=== PATIENT | female | born 1985 | race Caucasian/White ===

== ENCOUNTER 2018-02-01 00:01 | Inpatient (IN) | payer OTHER ==
[2018-02-01] MEDS ORDERED: Ondansetron 4 MG/2 ML SDV IVPUSH PRN (02:38)
[2018-02-01] MEDS ORDERED: Nalbuphine 20 MG/1 ML Amp IVPUSH PRN (02:38)
[2018-02-01] MEDS ORDERED: Sodium Chloride 0.9% 10 ML Syringe FLUSH PRN (02:38)
[2018-02-01] MEDS ORDERED: Ampicillin 2 GM in Sodium Chloride 0.9% 100 ML IV ONE (02:38)
--- NOTE | 2018-02-01 02:41 | PCM.LDHP ---
L&D History of Present Illness - General Date of Service: 02/01/18 Admit Problem/Dx: Patient Status Order with Admit Dx/Problem 02/01/18 02:38 Patient Status [ADT] Routine Admission Diagnosis/Problem Admission Diagnosis/Problem Normal Source of Information: Patient History Limitations: Reports: No Limitations - History of Present Illness Introduction:: Patient is a 32 y/o at 38 5/7 wks who presented with concerns of contractions and then had ROM while in triage. Otherwise doing well. No concerns. 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: Reports: Endometriosis : 2 Para: 1 LMP (Approximate): - Past Surgical History GI Surgical History: Reports: Colonoscopy, EGD Female Surgical History: Reports: Other (See Below) (Diagnostic laparoscopy) Social & Family History - Family History Family Medical History: Noncontributory - Tobacco Use Smoking Status *Q: Never Smoker Second Hand Smoke Exposure: No - Alcohol Use Alcohol Use History: No - Recreational Drug Use Recreational Drug Use: No H&P Review of Systems - Review of Systems: Review Of Systems: See Below General: Reports: No Symptoms Pulmonary: Reports: No Symptoms Cardiovascular: Reports: No Symptoms Gastrointestinal: Reports: No Symptoms Genitourinary: Reports: No Symptoms Musculoskeletal: Reports: No Symptoms Psychiatric: Reports: No Symptoms Neurological: Reports: No Symptoms L&D Exam - Exam Exam: See Below - OB Specific Contraction Intensity: Mild to Moderate Movement: Active Heart Tones: Present Heart Tones per Min: 145 Heart Rate (FHR) Variability: Moderate (6-25 bmp) Presentation: Vertex - Franklin Score Franklin Score Cervix Position: Posterior Franklin Score Consistency: Medium Franklin Score Effacement: 51-70% Franklin Score Dilation: 1-2 cm Franklin Score Infant's Station: -2 Franklin Score Total: 5 - Exam General: Alert, Oriented, Cooperative Lungs: Clear to Auscultation, Normal Respiratory Effort Cardiovascular: Regular Rate, Regular Rhythm GI/Abdominal Exam: Soft, Non-Tender Genitourinary: Normal external exam Extremities: Normal Inspection Skin: Warm, Dry, Intact - Patient Data Result Diagrams: 02/01/18 04:20 - Problem List (1) 38 weeks gestation of SNOMED Code(s): 16618615 ICD Code: Z3A.38 - 38 WEEKS GESTATION OF Status: Acute Current Visit: Yes (2) SROM (spontaneous rupture of membranes) SNOMED Code(s): 913448696 ICD Code: [id number] - Status: Acute Current Visit: Yes Problem List Initiated/Reviewed/Updated: Yes Orders Last 24hrs: Active Orders 24 hr Category Date Time Status Patient Status [ADT] Routine ADT 02/01/18 02:38 Ordered Activity as Tolerated [RC] PFP Care 02/01/18 02:38 Ordered Communication Order [RC] ASDIRECTED Care 02/01/18 02:38 Ordered Heart Tones [RC] ASDIRECTED Care 02/01/18 02:38 Ordered Notify Provider [RC] PFP Care 02/01/18 02:38 Ordered Notify Provider [RC] PRN Care 02/01/18 02:38 Ordered Peripheral IV Care [RC] . DIRECTED Care 02/01/18 02:38 Ordered Vital Signs [RC] PER UNIT ROUTINE Care 02/01/18 02:38 Ordered Regular Diet [DIET] Diet 02/01/18 Dinner Ordered CBC W/O DIFF,HEMOGRAM [HEME] Routine Lab 02/01/18 02:38 Ordered TYPE AND SCREEN [BBK] Routine Lab 02/01/18 02:38 Ordered Ampicillin 1 gm Med 02/01/18 02:45 Ordered Sodium Chloride 0.9% [Normal Saline] 100 ml IV Q4H Ampicillin 2 gm Med 02/01/18 02:38 Ordered Sodium Chloride 0.9% [Normal Saline] 100 ml IV ONETIME Lactated Ringers [Ringers, Lactated] 1,000 ml Med 02/01/18 02:45 Ordered IV ASDIRECTED Nalbuphine [Nubain] Med 02/01/18 02:38 Ordered 10 mg IVPUSH Q2H PRN Ondansetron [Zofran] Med 02/01/18 02:38 Ordered 4 mg IVPUSH Q4H PRN Oxytocin/Lactated Ringers [Pitocin in LR 10 Units/1,000 Med 02/01/18 02:45 Ordered ML] 10 unit in 1,000 ml IV .CONTINUOUS Sodium Chloride 0.9% [Saline Flush] Med 02/01/18 02:38 Ordered 10 ml FLUSH ASDIRECTED PRN Electronic Heart Tones Ext w TOCO [WOMSER] Ot 02/01/18 02:38 Ordered Routine Electronic Heart Tones Internal [WOMSER] Per Unit Ot 02/01/18 02:38 Ordered Routine Peripheral IV Insertion Adult [OM.PC] Routine Ot 02/01/18 02:38 Ordered Resuscitation Status Routine Resus Stat 02/01/18 02:38 Ordered Assessment/Plan Comment:: 32 y/o at 38 5/7 wks presents with SROM * CBC adn T&S * GBS positive, will start ampicillin * Will allow patient to labor on her own and will consider augmentation if needed * Pain management per patient preference * Anticipate
[2018-02-01] MEDS ORDERED: Oxytocin/Lactated Ringers 10 UNIT/1,000 ML BAG IV SCH (02:45)
[2018-02-01] MEDS: Lactated Ringers 1,000 ML IV SCH ×5 (03:05→22:47)
[2018-02-01] MEDS: Ampicillin 1 GM in Sodium Chloride 0.9% 100 ML IV SCH ×4 (07:19→20:05)
[2018-02-01] MEDS ORDERED: ePHEDrine 50 MG/ML SDV IVPUSH PRN ×3 (07:36→20:29)
[2018-02-01] MEDS ORDERED: fentaNYL 100 MCG/2 ML SDV EPIDUR PRN ×3 (07:36→20:29)
[2018-02-01] MEDS ORDERED: diphenhydrAMINE 50 MG/ML SDV IVPUSH PRN ×3 (07:36→20:29)
[2018-02-01] MEDS ORDERED: Bupivacaine/fentaNYL/NS 100 ML Bag EPIDUR SCH ×3 (07:45→20:30)
[2018-02-01] MEDS ORDERED: Nalbuphine 20 MG/ML 1 ML Syringe IVPUSH PRN (09:41)
--- NOTE | 2018-02-01 13:08 | PCM.PNLD ---
Labor Progress Note - VS & Meds Vital Signs: Last Vital Signs Temp 36.6 C 02/01/18 02:38 Pulse 60 02/01/18 02:38 Resp 15 02/01/18 02:38 BP 104/59 L 02/01/18 02:38 Pulse Ox Active Medications: Current Medications Diphenhydramine HCl (Benadryl) 25 mg IVPUSH Q6H PRN PRN Reason: Itching Ephedrine Sulfate (Ephedrine Sulfate) 5 mg IVPUSH ASDIRECTED PRN PRN Reason: HYPOTENTSION Fentanyl (Sublimaze) 100 mcg EPIDUR Q3H PRN PRN Reason: PAIN Fentanyl/Bupivacaine HCl (Fentanyl/Bupivacaine/Ns 2 Mcg-0.125% 100 Ml) 100 ml EPIDUR ASDIRECTED [facility] Ampicillin Sodium 1 gm/ Sodium (Chloride) 100 mls @ 200 mls/hr IV Q4H [facility] Last Admin: 02/01/18 11:08 Dose: 200 mls/hr Lactated Ringer's (Ringers, Lactated) 1,000 mls @ 100 mls/hr IV ASDIRECTED [facility] Last Admin: 02/01/18 07:19 Dose: 100 mls/hr Oxytocin/Lactated Ringer's (Pitocin In Lr 10 Units/1,000 Ml) 10 unit in 1,000 mls @ 500 mls/hr IV .CONTINUOUS [facility] Nalbuphine HCl (Nubain) 10 mg IVPUSH Q2H PRN PRN Reason: Pain (moderate 4-6) Ondansetron HCl (Zofran) 4 mg IVPUSH Q4H PRN PRN Reason: Nausea/Vomiting Sodium Chloride (Saline Flush) 10 ml FLUSH ASDIRECTED PRN PRN Reason: Keep Vein Open Discontinued Medications Ampicillin Sodium 2 gm/ Sodium (Chloride) 100 mls @ 200 mls/hr IV ONETIME ONE Stop: 02/01/18 03:07 Last Admin: 02/01/18 03:10 Dose: 200 mls/hr Nalbuphine HCl (Nubain) 10 mg IVPUSH Q2H PRN PRN Reason: Pain (moderate 4-6) - Uterine Contractions Uterine Monitoring Mode: External [place] Contraction Intensity: Mild - Monitoring Monitor Mode: External Ultrasound Heart Rate (FHR) Baseline: 140 Heart Rate (FHR) Variability: Moderate (6-25 bmp) Accelerations: Present, 15x15 Decelerations: None Strip Review: Category I - Labor Progress (Free Text) Labor Progress: Patient not feeling much for contractions any further. Will initiation pitocin for augmentation
[2018-02-01] MEDS: Oxytocin/Lactated Ringers 10 UNIT/1,000 ML BAG IV SCH (14:17)
[2018-02-01] MEDS ORDERED: Promethazine 25 MG Tab PO PRN (19:59)
--- NOTE | 2018-02-01 20:33 | PCM.PNLD ---
Labor Progress Note - VS & Meds Vital Signs: Last Vital Signs Temp 36.6 C 02/01/18 02:38 Pulse 60 02/01/18 02:38 Resp 15 02/01/18 02:38 BP 104/59 L 02/01/18 02:38 Pulse Ox Active Medications: Current Medications Diphenhydramine HCl (Benadryl) 25 mg IVPUSH Q6H PRN PRN Reason: Itching Diphenhydramine HCl (Benadryl) 25 mg IVPUSH Q6H PRN PRN Reason: Itching Ephedrine Sulfate (Ephedrine Sulfate) 5 mg IVPUSH ASDIRECTED PRN PRN Reason: HYPOTENTSION Ephedrine Sulfate (Ephedrine Sulfate) 5 mg IVPUSH ASDIRECTED PRN PRN Reason: HYPOTENTSION Fentanyl (Sublimaze) 100 mcg EPIDUR Q3H PRN PRN Reason: PAIN Fentanyl (Sublimaze) 100 mcg EPIDUR Q3H PRN PRN Reason: PAIN Fentanyl/Bupivacaine HCl (Fentanyl/Bupivacaine/Ns 2 Mcg-0.125% 100 Ml) 100 ml EPIDUR ASDIRECTED [facility] Fentanyl/Bupivacaine HCl (Fentanyl/Bupivacaine/Ns 2 Mcg-0.125% 100 Ml) 100 ml EPIDUR ASDIRECTED [facility] Ampicillin Sodium 1 gm/ Sodium (Chloride) 100 mls @ 200 mls/hr IV Q4H [facility] Last Admin: 02/01/18 16:09 Dose: 200 mls/hr Lactated Ringer's (Ringers, Lactated) 1,000 mls @ 100 mls/hr IV ASDIRECTED [facility] Last Admin: 02/01/18 18:31 Dose: 100 mls/hr Oxytocin/Lactated Ringer's (Pitocin In Lr 10 Units/1,000 Ml) 10 unit in 1,000 mls @ 500 mls/hr IV .CONTINUOUS [facility] Oxytocin/Lactated Ringer's (Pitocin In Lr 10 Units/1,000 Ml) 10 unit in 1,000 mls @ 12 mls/hr IV TITRATE [facility]; Protocol Last Titration: 02/01/18 17:00 Dose: 10 munits/min, 60 mls/hr Nalbuphine HCl (Nubain) 10 mg IVPUSH Q2H PRN PRN Reason: Pain (moderate 4-6) Ondansetron HCl (Zofran) 4 mg IVPUSH Q4H PRN PRN Reason: Nausea/Vomiting Promethazine HCl (Phenergan) 25 mg PO Q4H PRN PRN Reason: Nausea/Vomiting Sodium Chloride (Saline Flush) 10 ml FLUSH ASDIRECTED PRN PRN Reason: Keep Vein Open Discontinued Medications Diphenhydramine HCl (Benadryl) 25 mg IVPUSH Q6H PRN PRN Reason: Itching Ephedrine Sulfate (Ephedrine Sulfate) 5 mg IVPUSH ASDIRECTED PRN PRN Reason: HYPOTENTSION Fentanyl (Sublimaze) 100 mcg EPIDUR Q3H PRN PRN Reason: PAIN Fentanyl/Bupivacaine HCl (Fentanyl/Bupivacaine/Ns 2 Mcg-0.125% 100 Ml) 100 ml EPIDUR ASDIRECTED [facility] Ampicillin Sodium 2 gm/ Sodium (Chloride) 100 mls @ 200 mls/hr IV ONETIME ONE Stop: 02/01/18 03:07 Last Admin: 02/01/18 03:10 Dose: 200 mls/hr Nalbuphine HCl (Nubain) 10 mg IVPUSH Q2H PRN PRN Reason: Pain (moderate 4-6) - Uterine Contractions Uterine Monitoring Mode: External [place] Contraction Intensity: Mild - Monitoring Monitor Mode: External Ultrasound Heart Rate (FHR) Baseline: 140 Heart Rate (FHR) Variability: Moderate (6-25 bmp) Accelerations: Present, 15x15 Decelerations: Early, Late, Variable, Intermittent (<50% x 20 min) Strip Review: Category II - Vaginal Exam Dilation (cm): 2 Effacement (Percent): 80 Station: -1 Cervical Position: Midposition - Labor Progress (Free Text) Labor Progress: Patient currently on 12 of pitocin and now starting to become uncomfortable. Requesting epidural. Continue management otherwise
--- NOTE | 2018-02-01 21:09 | PCM.PREANE ---
Preanesthetic Assessment - Anesthesia/Transfusion/Family Hx Anesthesia History: Prior Anesthesia Without Reaction Family History of Anesthesia Reaction: No Transfusion History: No Prior Transfusion(s) - Review of Systems General: No Symptoms Pulmonary: No Symptoms Cardiovascular: No Symptoms Gastrointestinal: No Symptoms Neurological: No Symptoms Other: Reports: None - Physical Assessment Pulse: 60 O2 Sat by Pulse Oximetry: 97 Respiratory Rate: 15 Blood Pressure: 104/59 Temperature: 36.6 C Vital Signs: Last Vital Signs Temp 36.6 C 02/01/18 02:38 Pulse 60 02/01/18 02:38 Resp 15 02/01/18 02:38 BP 104/59 L 02/01/18 02:38 Pulse Ox Height: 1.73 m Weight: 68.492 kg ASA Class: 2 Mental Status: Alert & Oriented x3 Airway Class: Mallampati = 1 Dentition: Reports: Normal Dentition Thyro-Mental Finger Breadths: 3 Mouth Opening Finger Breadths: 3 ROM/Head Extension: Full Lungs: Clear to Auscultation, Normal Respiratory Effort Cardiovascular: Regular Rate, Regular Rhythm - Lab Values: Laboratory Last Values WBC 7.24 K/mm3 (3.98-10.04) 02/01/18 04:20 RBC 4.05 M/mm3 (3.98-5.22) 02/01/18 04:20 Hgb 12.8 gm/L (11.2-15.7) 02/01/18 04:20 Hct 38.2 % (34.1-44.9) 02/01/18 04:20 MCV 94.3 fl (79.4-94.8) 02/01/18 04:20 MCH 31.6 pg (25.6-32.2) 02/01/18 04:20 MCHC 33.5 g/dl (32.2-35.5) 02/01/18 04:20 RDW Std Deviation 46.5 fL (36.4-46.3) H 02/01/18 04:20 Plt Count 187 K/mm3 (182-369) 02/01/18 04:20 MPV 9.5 fl (9.4-12.3) 02/01/18 04:20 Blood Type A POSITIVE 02/01/18 04:20 Gel Antibody Screen Negative 02/01/18 04:20 - Allergies Allergies/Adverse Reactions: Allergies Allergy/AdvReac Type Severity Reaction Status Date / Time No Known Allergies Allergy Verified 12/21/15 08:46 - Anesthesia Plan Pre-Op Medication Ordered: None - Acknowledgements Anesthesia Type Planned: Epidural Pt an Appropriate Candidate for the Planned Anesthesia: Yes Alternatives and Risks of Anesthesia Discussed w Pt/Guardian: Yes Pt/Guardian Understands and Agrees with Anesthesia Plan: Yes PreAnesthesia Questionnaire - Past Health History Medical/Surgical History: Denies Medical/Surgical History HEENT History: Reports: None Gastrointestinal History: Reports: GERD, Other (See Below) Other Gastrointestinal History: Hematochezia 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 Problems with conception. - Past Surgical History GI Surgical History: Reports: Colonoscopy, EGD Female Surgical History: Reports: Other (See Below) (Diagnostic laparoscopy) - SUBSTANCE USE Smoking Status *Q: Never Smoker Second Hand Smoke Exposure: No Recreational Drug Use History: No - HOME MEDS Home Medications: Home Meds PNV95/Ferrous Fumarate/FA [ Multivitamins] 1 tab PO DAILY 05/21/15 [ History] Ibuprofen [Motrin] 600 mg PO Q4H PRN #30 tablet 12/23/15 [Rx] - CURRENT (IN HOUSE) MEDS Current Meds: Current Medications Diphenhydramine HCl (Benadryl) 25 mg IVPUSH Q6H PRN PRN Reason: Itching Ephedrine Sulfate (Ephedrine Sulfate) 5 mg IVPUSH ASDIRECTED PRN PRN Reason: HYPOTENTSION Fentanyl (Sublimaze) 100 mcg EPIDUR Q3H PRN PRN Reason: PAIN Last Admin: 02/01/18 20:54 Dose: 100 mcg Fentanyl/Bupivacaine HCl (Fentanyl/Bupivacaine/Ns 2 Mcg-0.125% 100 Ml) 100 ml EPIDUR ASDIRECTED [facility] Last Admin: 02/01/18 20:55 Dose: 100 ml Ampicillin Sodium 1 gm/ Sodium (Chloride) 100 mls @ 200 mls/hr IV Q4H [facility] Last Admin: 02/01/18 20:05 Dose: 200 mls/hr Lactated Ringer's (Ringers, Lactated) 1,000 mls @ 100 mls/hr IV ASDIRECTED [facility] Last Admin: 02/01/18 18:31 Dose: 100 mls/hr Oxytocin/Lactated Ringer's (Pitocin In Lr 10 Units/1,000 Ml) 10 unit in 1,000 mls @ 500 mls/hr IV .CONTINUOUS [facility] Oxytocin/Lactated Ringer's (Pitocin In Lr 10 Units/1,000 Ml) 10 unit in 1,000 mls @ 12 mls/hr IV TITRATE [facility]; Protocol Last Titration: 02/01/18 17:00 Dose: 10 munits/min, 60 mls/hr Nalbuphine HCl (Nubain) 10 mg IVPUSH Q2H PRN PRN Reason: Pain (moderate 4-6) Ondansetron HCl (Zofran) 4 mg IVPUSH Q4H PRN PRN Reason: Nausea/Vomiting Promethazine HCl (Phenergan) 25 mg PO Q4H PRN PRN Reason: Nausea/Vomiting Sodium Chloride (Saline Flush) 10 ml FLUSH ASDIRECTED PRN PRN Reason: Keep Vein Open Discontinued Medications Diphenhydramine HCl (Benadryl) 25 mg IVPUSH Q6H PRN PRN Reason: Itching Ephedrine Sulfate (Ephedrine Sulfate) 5 mg IVPUSH ASDIRECTED PRN PRN Reason: HYPOTENTSION Fentanyl (Sublimaze) 100 mcg EPIDUR Q3H PRN PRN Reason: PAIN Fentanyl/Bupivacaine HCl (Fentanyl/Bupivacaine/Ns 2 Mcg-0.125% 100 Ml) 100 ml EPIDUR ASDIRECTED [facility] Ampicillin Sodium 2 gm/ Sodium (Chloride) 100 mls @ 200 mls/hr IV ONETIME ONE Stop: 02/01/18 03:07 Last Admin: 02/01/18 03:10 Dose: 200 mls/hr Nalbuphine HCl (Nubain) 10 mg IVPUSH Q2H PRN PRN Reason: Pain (moderate 4-6)
[2018-02-02] MEDS: Ampicillin 1 GM in Sodium Chloride 0.9% 100 ML IV SCH ×2 (00:10→04:12)
[2018-02-02] MEDS ORDERED: Bupivacaine 0.25% 10 ML SDV ONE (02:00)
[2018-02-02] MEDS: Oxytocin/Lactated Ringers 10 UNIT/1,000 ML BAG IV SCH (05:17)
[2018-02-02] MEDS: Lactated Ringers 1,000 ML IV SCH (05:17)
--- NOTE | 2018-02-02 06:42 | PCM.DEL ---
L & D Note - General Info Date of Service: 02/02/18 - Delivery Note Labor: Augmented by Oxytocin Delivery Outcome: Livebirth Delivery Method: Spontaneous Vaginal Delivery-Single Delivery Mode: Spontaneous Presentation: Left Occiput Anterior (ROZ) Nuchal Cord: Present (Tight and so not reduced) Anesthesia Type: Epidural Amniotic Fluid Description: Clear Episiotomy Type: None Laceration: None Placenta: Intact, Spontaneous Cord: 3 Vessels Estimated Blood Loss: 450 Resuscitation Needed: Yes [place]: Suctioned, Bulb Syringe, Stimulated, Warmed, [place] Used, Warmer Used Score 1 min: 5 Score 5 min: 8 Delivery Comments (Free Text/Narrative):: Patient found to be complete and began pushing. With maternal pushing effort head delivered from ROZ presentation. Tight nuchal present and not able to be reduced. With gentle downward traction the shoulders and body delivered. Cord clamped and cut. Baby taken to warmer for assessment. Cord blood collected. Placenta allowed time to separate and expelled intact. There was a little brisk bleeding noted. Clot was swept from the lower uterine segment which helped decrease this. Inspection of the perineum showed no lacerations - General Info Date of Service: 02/02/18 - Patient Data Vitals - Most Recent: Last Vital Signs Temp 36.6 C 02/01/18 21:09 Pulse 60 02/01/18 21:09 Resp 15 02/01/18 21:09 BP 104/59 L 02/01/18 21:09 Pulse Ox 97 02/01/18 21:09 Weight - Most Recent: 68.492 kg I&O - Last 24 Hours: Intake & Output 02/01/18 02/01/18 02/02/18 14:59 22:59 06:59 Intake Total 0 0 Balance 0 0 Lab Results Last 24 Hours: Laboratory Results - last 24 hr 02/01/18 Range/Units 04:20 Gel Antibody Screen Negative Med Orders - Current: Current Medications Diphenhydramine HCl (Benadryl) 25 mg IVPUSH Q6H PRN PRN Reason: Itching Ephedrine Sulfate (Ephedrine Sulfate) 5 mg IVPUSH ASDIRECTED PRN PRN Reason: HYPOTENTSION Fentanyl (Sublimaze) 100 mcg EPIDUR Q3H PRN PRN Reason: PAIN Last Admin: 02/01/18 20:54 Dose: 100 mcg Fentanyl/Bupivacaine HCl (Fentanyl/Bupivacaine/Ns 2 Mcg-0.125% 100 Ml) 100 ml EPIDUR ASDIRECTED [facility] Last Admin: 02/01/18 20:55 Dose: 100 ml Ampicillin Sodium 1 gm/ Sodium (Chloride) 100 mls @ 200 mls/hr IV Q4H [facility] Last Admin: 02/02/18 04:12 Dose: 200 mls/hr Lactated Ringer's (Ringers, Lactated) 1,000 mls @ 100 mls/hr IV ASDIRECTED [facility] Last Admin: 02/02/18 05:17 Dose: 100 mls/hr Oxytocin/Lactated Ringer's (Pitocin In Lr 10 Units/1,000 Ml) 10 unit in 1,000 mls @ 500 mls/hr IV .CONTINUOUS [facility] Oxytocin/Lactated Ringer's (Pitocin In Lr 10 Units/1,000 Ml) 10 unit in 1,000 mls @ 12 mls/hr IV TITRATE [facility]; Protocol Last Admin: 02/02/18 05:17 Dose: 10 munits/min, 60 mls/hr Nalbuphine HCl (Nubain) 10 mg IVPUSH Q2H PRN PRN Reason: Pain (moderate 4-6) Ondansetron HCl (Zofran) 4 mg IVPUSH Q4H PRN PRN Reason: Nausea/Vomiting Last Admin: 02/02/18 01:36 Dose: 4 mg Promethazine HCl (Phenergan) 25 mg PO Q4H PRN PRN Reason: Nausea/Vomiting Sodium Chloride (Saline Flush) 10 ml FLUSH ASDIRECTED PRN PRN Reason: Keep Vein Open Discontinued Medications Diphenhydramine HCl (Benadryl) 25 mg IVPUSH Q6H PRN PRN Reason: Itching Ephedrine Sulfate (Ephedrine Sulfate) 5 mg IVPUSH ASDIRECTED PRN PRN Reason: HYPOTENTSION Fentanyl (Sublimaze) 100 mcg EPIDUR Q3H PRN PRN Reason: PAIN Fentanyl/Bupivacaine HCl (Fentanyl/Bupivacaine/Ns 2 Mcg-0.125% 100 Ml) 100 ml EPIDUR ASDIRECTED [facility] Ampicillin Sodium 2 gm/ Sodium (Chloride) 100 mls @ 200 mls/hr IV ONETIME ONE Stop: 02/01/18 03:07 Last Admin: 02/01/18 03:10 Dose: 200 mls/hr Nalbuphine HCl (Nubain) 10 mg IVPUSH Q2H PRN PRN Reason: Pain (moderate 4-6) - Problem List & Annotations (1) 38 weeks gestation of SNOMED Code(s): 50998175 Code(s): Z3A.38 - 38 WEEKS GESTATION OF Status: Acute Current Visit: Yes (2) SROM (spontaneous rupture of membranes) SNOMED Code(s): 516140101 Code(s): VSM9595 - Status: Acute Current Visit: Yes (3) Vaginal delivery SNOMED Code(s): 401198337 Code(s): O80 - ENCOUNTER FOR FULL-TERM UNCOMPLICATED DELIVERY Status: Acute Current Visit: Yes - Problem List Review Problem List Initiated/Reviewed/Updated: Yes - My Orders Last 24 Hours: My Active Orders 02/01/18 06:30 Ampicillin 1 gm Sodium Chloride 0.9% [Normal Saline] 100 ml IV Q4H 02/01/18 09:41 Nalbuphine [Nubain] 10 mg IVPUSH Q2H PRN 02/01/18 14:30 Oxytocin/Lactated Ringers [Pitocin in LR 10 Units/1,000 ML] 10 unit in 1,000 ml IV TITRATE 02/01/18 19:59 Promethazine [Phenergan] 25 mg PO Q4H PRN 02/01/18 Dinner Regular Diet [DIET] 02/02/18 06:31 Patient Status Manage Transfer [TRANSFER] Routine - Assessment Assessment:: 32 g/y G2 now P2002 PPD#0 from at 38 6/7 wks - Plan Plan:: * Routine cares * Encourage breast feeding * Discharge home in 1-2 days
[2018-02-02] MEDS ORDERED: Acetaminophen 325 MG Tab PO PRN (07:40)
[2018-02-02] MEDS ORDERED: Witch Hazel Medicated Pads 100/Jar TOP PRN (07:40)
[2018-02-02] MEDS ORDERED: Benzocaine/Menthol 20%-0.5% Spray 56 GM Canister TOP PRN (07:40)
[2018-02-02] MEDS ORDERED: Lanolin 100% Cream 7 GM Tube TOP PRN (07:40)
[2018-02-02] MEDS ORDERED: Docusate Sodium 100 MG Cap PO PRN (07:40)
--- NOTE | 2018-02-02 07:49 | PCM48HPAN ---
Post Anesthesia Note - EVALUATION WITHIN 48HRS OF ANESTHETIC Vital Signs in Normal Range: Yes Patient Participated in Evaluation: Yes Respiratory Function Stable: Yes Airway Patent: Yes Cardiovascular Function Stable: Yes Hydration Status Stable: Yes Pain Control Satisfactory: Yes Nausea and Vomiting Control Satisfactory: Yes Mental Status Recovered: Yes Pulse Rate: 60 Resp Rate: 15 Temperature: 97.9 F Blood Pressure: 104/59
[2018-02-02] MEDS ORDERED: Ondansetron 4 MG/2 ML SDV IVPUSH PRN (08:23)
[2018-02-02] MEDS: Ibuprofen 600 MG Tab PO PRN ×2 (13:02→21:02)
[2018-02-02] MEDS ORDERED: Sodium Chloride 0.9% 1,000 ML IV ONE (14:31)
[2018-02-02] MEDS ORDERED: Sodium Chloride 0.9% 1,000 ML ONE (14:34)
--- NOTE | 2018-02-03 07:06 | PCM.DCSUM1 ---
Discharge Summary - Discharge Data Discharge Date: 02/03/18 Discharge Disposition: Home, Self-Care 01 Condition: Good - Discharge Diagnosis/Problem(s) (1) 38 weeks gestation of SNOMED Code(s): 51399114 ICD Code: Z3A.38 - 38 WEEKS GESTATION OF Status: Acute (2) SROM (spontaneous rupture of membranes) SNOMED Code(s): 613717776 ICD Code: [id number] - Status: Acute (3) Vaginal delivery SNOMED Code(s): 539204183 ICD Code: O80 - ENCOUNTER FOR FULL-TERM UNCOMPLICATED DELIVERY Status: Acute - Patient Summary/Data Complications: None Consults: None Recommended Follow-up Testing/Procedures: Follow up in 3-6 weeks for check Hospital Course: 32 y/o who presented at 38 5/7 wks with labor / SROM. She eventually did require pitocin for augmentation. She progressed slowly, but well with this to complete dilation and underwent an uncomplicated . See delivery note. she did well and was discharged home on PPD#1 - Patient Instructions Diet: Regular Diet as Tolerated Activity: As Tolerated Activity, Other: Pelvic Rest for 6 weeks Driving: May Drive Today Showering/Bathing: May Shower Notify Provider of: Fever, Increased Pain, Swelling and Redness, Drainage, Nausea and/or Vomiting - Discharge Plan Home Medications: Home Meds PNV95/Ferrous Fumarate/FA [ Multivitamins] 1 tab PO DAILY 05/21/15 [ History] Ibuprofen [Motrin] 600 mg PO Q4H PRN #30 tablet 12/23/15 [Rx] Docusate Sodium [Colace] 100 mg PO BID PRN cap 02/03/18 [Rx] Patient Handouts: and Mastitis, Home Care Instructions for Mom, Breast Engorgement, Tips for a Good Latch Referrals: Jammie Todd MD [Primary Care Provider] - (3-6 weeks for check. please call for appointment. ) - Discharge Summary/Plan Comment DC Time >30 min.: No - Patient Data Vitals - Most Recent: Last Vital Signs Temp 36.6 C 02/02/18 21:02 Pulse 54 L 02/02/18 14:45 Resp 16 02/02/18 21:00 BP 93/58 L 02/02/18 14:45 Pulse Ox 98 02/02/18 14:45 Weight - Most Recent: 68.492 kg I&O - Last 24 hours: Intake & Output 02/02/18 02/03/18 02/03/18 22:59 06:59 14:59 Intake Total 240 Balance 240 Med Orders - Current: Current Medications Acetaminophen (Tylenol) 650 mg PO Q4H PRN PRN Reason: mild pain or fever Last Admin: 02/02/18 17:06 Dose: 650 mg Benzocaine/Menthol (Dermoplast Pain Relief [place]) 0 gm TOP ASDIRECTED PRN PRN Reason: Perineal Comfort Measure Docusate Sodium (Colace) 100 mg PO BID PRN PRN Reason: Constipation Emollient Ointment (Lansinoh Hpa) 0 gm TOP ASDIRECTED PRN PRN Reason: Sore Nipples Ibuprofen (Motrin) 600 mg PO Q6H PRN PRN Reason: Mild pain or fever Last Admin: 02/02/18 21:02 Dose: 600 mg Ondansetron HCl (Zofran) 4 mg IVPUSH Q8H PRN PRN Reason: Nausea Last Admin: 02/02/18 08:31 Dose: 4 mg Witch Danielle (Tucks) 1 pad TOP ASDIRECTED PRN PRN Reason: Hemorrhoid pain Discontinued Medications Diphenhydramine HCl (Benadryl) 25 mg IVPUSH Q6H PRN PRN Reason: Itching Diphenhydramine HCl (Benadryl) 25 mg IVPUSH Q6H PRN PRN Reason: Itching Ephedrine Sulfate (Ephedrine Sulfate) 5 mg IVPUSH ASDIRECTED PRN PRN Reason: HYPOTENTSION Ephedrine Sulfate (Ephedrine Sulfate) 5 mg IVPUSH ASDIRECTED PRN PRN Reason: HYPOTENTSION Fentanyl (Sublimaze) 100 mcg EPIDUR Q3H PRN PRN Reason: PAIN Fentanyl (Sublimaze) 100 mcg EPIDUR Q3H PRN PRN Reason: PAIN Last Admin: 02/01/18 20:54 Dose: 100 mcg Fentanyl/Bupivacaine HCl (Fentanyl/Bupivacaine/Ns 2 Mcg-0.125% 100 Ml) 100 ml EPIDUR ASDIRECTED HUNTER Fentanyl/Bupivacaine HCl (Fentanyl/Bupivacaine/Ns 2 Mcg-0.125% 100 Ml) 100 ml EPIDUR ASDIRECTED HUNTER Last Admin: 02/01/18 20:55 Dose: 100 ml Ampicillin Sodium 2 gm/ Sodium (Chloride) 100 mls @ 200 mls/hr IV ONETIME ONE Stop: 02/01/18 03:07 Last Admin: 02/01/18 03:10 Dose: 200 mls/hr Ampicillin Sodium 1 gm/ Sodium (Chloride) 100 mls @ 200 mls/hr IV Q4H [facility] Last Admin: 02/02/18 04:12 Dose: 200 mls/hr Lactated Ringer's (Ringers, Lactated) 1,000 mls @ 100 mls/hr IV ASDIRECTED HUNTER Last Admin: 02/02/18 05:17 Dose: 100 mls/hr Oxytocin/Lactated Ringer's (Pitocin In Lr 10 Units/1,000 Ml) 10 unit in 1,000 mls @ 500 mls/hr IV .CONTINUOUS HUNTER Oxytocin/Lactated Ringer's (Pitocin In Lr 10 Units/1,000 Ml) 10 unit in 1,000 mls @ 12 mls/hr IV TITRATE HUNTER; Protocol Last Admin: 02/02/18 05:17 Dose: 10 munits/min, 60 mls/hr Sodium Chloride (Normal Saline) 1,000 mls @ 500 mls/hr IV ONETIME ONE Stop: 02/02/18 16:30 Last Admin: 02/02/18 14:40 Dose: 500 mls/hr Sodium Chloride (Normal Saline) Confirm Administered Dose 1,000 mls @ as directed .ROUTE .STK-MED ONE Stop: 02/02/18 14:35 Last Admin: 02/03/18 02:37 Dose: Not Given Nalbuphine HCl (Nubain) 10 mg IVPUSH Q2H PRN PRN Reason: Pain (moderate 4-6) Nalbuphine HCl (Nubain) 10 mg IVPUSH Q2H PRN PRN Reason: Pain (moderate 4-6) Ondansetron HCl (Zofran) 4 mg IVPUSH Q4H PRN PRN Reason: Nausea/Vomiting Last Admin: 02/02/18 01:36 Dose: 4 mg Promethazine HCl (Phenergan) 25 mg PO Q4H PRN PRN Reason: Nausea/Vomiting Sodium Chloride (Saline Flush) 10 ml FLUSH ASDIRECTED PRN PRN Reason: Keep Vein Open
--- NOTE | 2018-02-03 07:06 | PCM.PNPP ---
- General Info Date of Service: 02/03/18 Functional Status: Reports: Pain Controlled, Tolerating Diet, Ambulating, Urinating - Review of Systems General: Reports: No Symptoms Pulmonary: Reports: No Symptoms Cardiovascular: Reports: No Symptoms Gastrointestinal: Reports: No Symptoms Genitourinary: Reports: No Symptoms Musculoskeletal: Reports: No Symptoms - Patient Data Vital Signs - Most Recent: Last Vital Signs Temp 36.6 C 02/02/18 21:02 Pulse 54 L 02/02/18 14:45 Resp 16 02/02/18 21:00 BP 93/58 L 02/02/18 14:45 Pulse Ox 98 02/02/18 14:45 Weight - Most Recent: 68.492 kg I&O - Last 24 Hours: Intake & Output 02/02/18 02/03/18 02/03/18 22:59 06:59 14:59 Intake Total 240 Balance 240 Med Orders - Current: Current Medications Acetaminophen (Tylenol) 650 mg PO Q4H PRN PRN Reason: mild pain or fever Last Admin: 02/02/18 17:06 Dose: 650 mg Benzocaine/Menthol (Dermoplast Pain Relief [place]) 0 gm TOP ASDIRECTED PRN PRN Reason: Perineal Comfort Measure Docusate Sodium (Colace) 100 mg PO BID PRN PRN Reason: Constipation Emollient Ointment (Lansinoh Hpa) 0 gm TOP ASDIRECTED PRN PRN Reason: Sore Nipples Ibuprofen (Motrin) 600 mg PO Q6H PRN PRN Reason: Mild pain or fever Last Admin: 02/02/18 21:02 Dose: 600 mg Ondansetron HCl (Zofran) 4 mg IVPUSH Q8H PRN PRN Reason: Nausea Last Admin: 02/02/18 08:31 Dose: 4 mg Witch Danielle (Tucks) 1 pad TOP ASDIRECTED PRN PRN Reason: Hemorrhoid pain Discontinued Medications Diphenhydramine HCl (Benadryl) 25 mg IVPUSH Q6H PRN PRN Reason: Itching Diphenhydramine HCl (Benadryl) 25 mg IVPUSH Q6H PRN PRN Reason: Itching Ephedrine Sulfate (Ephedrine Sulfate) 5 mg IVPUSH ASDIRECTED PRN PRN Reason: HYPOTENTSION Ephedrine Sulfate (Ephedrine Sulfate) 5 mg IVPUSH ASDIRECTED PRN PRN Reason: HYPOTENTSION Fentanyl (Sublimaze) 100 mcg EPIDUR Q3H PRN PRN Reason: PAIN Fentanyl (Sublimaze) 100 mcg EPIDUR Q3H PRN PRN Reason: PAIN Last Admin: 02/01/18 20:54 Dose: 100 mcg Fentanyl/Bupivacaine HCl (Fentanyl/Bupivacaine/Ns 2 Mcg-0.125% 100 Ml) 100 ml EPIDUR ASDIRECTED HUNTER Fentanyl/Bupivacaine HCl (Fentanyl/Bupivacaine/Ns 2 Mcg-0.125% 100 Ml) 100 ml EPIDUR ASDIRECTED HUNTER Last Admin: 02/01/18 20:55 Dose: 100 ml Ampicillin Sodium 2 gm/ Sodium (Chloride) 100 mls @ 200 mls/hr IV ONETIME ONE Stop: 02/01/18 03:07 Last Admin: 02/01/18 03:10 Dose: 200 mls/hr Ampicillin Sodium 1 gm/ Sodium (Chloride) 100 mls @ 200 mls/hr IV Q4H [facility]UNTER Last Admin: 02/02/18 04:12 Dose: 200 mls/hr Lactated Ringer's (Ringers, Lactated) 1,000 mls @ 100 mls/hr IV ASDIRECTED HUNTER Last Admin: 02/02/18 05:17 Dose: 100 mls/hr Oxytocin/Lactated Ringer's (Pitocin In Lr 10 Units/1,000 Ml) 10 unit in 1,000 mls @ 500 mls/hr IV .CONTINUOUS HUNTER Oxytocin/Lactated Ringer's (Pitocin In Lr 10 Units/1,000 Ml) 10 unit in 1,000 mls @ 12 mls/hr IV TITRATE HUNTER; Protocol Last Admin: 02/02/18 05:17 Dose: 10 munits/min, 60 mls/hr Sodium Chloride (Normal Saline) 1,000 mls @ 500 mls/hr IV ONETIME ONE Stop: 02/02/18 16:30 Last Admin: 02/02/18 14:40 Dose: 500 mls/hr Sodium Chloride (Normal Saline) Confirm Administered Dose 1,000 mls @ as directed .ROUTE .STK-MED ONE Stop: 02/02/18 14:35 Last Admin: 02/03/18 02:37 Dose: Not Given Nalbuphine HCl (Nubain) 10 mg IVPUSH Q2H PRN PRN Reason: Pain (moderate 4-6) Nalbuphine HCl (Nubain) 10 mg IVPUSH Q2H PRN PRN Reason: Pain (moderate 4-6) Ondansetron HCl (Zofran) 4 mg IVPUSH Q4H PRN PRN Reason: Nausea/Vomiting Last Admin: 02/02/18 01:36 Dose: 4 mg Promethazine HCl (Phenergan) 25 mg PO Q4H PRN PRN Reason: Nausea/Vomiting Sodium Chloride (Saline Flush) 10 ml FLUSH ASDIRECTED PRN PRN Reason: Keep Vein Open - Infant Interaction Disposition, : [place] in Room with Family Infant Interaction: Holding Infant Feeding: Breastfed ; Nursed Well Support Person: - Recovery Exam Fundal Tone: Firm Fundal Level: 1 Fingerbreadths Below Umbilicus Fundal Placement: Midline Lochia Amount: Scant Lochia Color: Rubra/Red Perineum Description: Intact, Minimal Bruising/Swelling Episiotomy/Laceration: None Bladder Status: Nonpalpable - Exam General: Alert, Oriented, Cooperative GI/Abdominal Exam: Soft, Non-Tender Extremities: Normal Inspection Skin: Warm, Dry, Intact - Problem List & Annotations (1) 38 weeks gestation of SNOMED Code(s): 09493678 Code(s): Z3A.38 - 38 WEEKS GESTATION OF Status: Acute Current Visit: Yes (2) SROM (spontaneous rupture of membranes) SNOMED Code(s): 342639355 Code(s): XAO6400 - Status: Acute Current Visit: Yes (3) Vaginal delivery SNOMED Code(s): 857070998 Code(s): O80 - ENCOUNTER FOR FULL-TERM UNCOMPLICATED DELIVERY Status: Acute Current Visit: Yes - Problem List Review Problem List Initiated/Reviewed/Updated: Yes - My Orders Last 24 Hours: My Active Orders 02/02/18 07:40 Activity as Tolerated [RC] PER UNIT ROUTINE Vital Signs [RC] 0900,1500,2100,0300 Acetaminophen [Tylenol] 650 mg PO Q4H PRN Benzocaine/Menthol [Dermoplast Pain Relief Breese] See Dose Instructions TOP ASDIRECTED PRN Docusate Sodium [Colace] 100 mg PO BID PRN Ibuprofen [Motrin] 600 mg PO Q6H PRN Lanolin [Lansinoh HPA] See Dose Instructions TOP ASDIRECTED PRN Witch Danielle [Tucks] 1 pad TOP ASDIRECTED PRN Assess Lochia [WOMSER] Per Unit Routine Assess Uterine Involution [WOMSER] Per Unit Routine Breast Pump [WOMSER] Per Unit Routine Heat Therapy [OM.PC] PRN Ice Therapy [OM.PC] Per Unit Routine Perineal Care [OM.PC] Per Unit Routine Peripheral IV Discontinue [OM.PC] Routine Sitz Bath [OM.PC] Per Unit Routine 02/02/18 08:23 Ondansetron [Zofran] 4 mg IVPUSH Q8H PRN 02/02/18 Breakfast Regular Diet [DIET] 02/02/18 Lunch Regular Diet [DIET] 02/03/18 07:05 Ready for Discharge [RC] PER UNIT ROUTINE 02/03/18 07:40 Heat Therapy [OM.PC] PRN - Assessment Assessment:: 32 g/y G2 now P2002 PPD#1 from at 38 6/7 wks - Plan Plan:: * Routine cares * Encourage breast feeding * Discharge home today vs tomorrow pending patient preference
[2018-02-03 11:24] VITALS: BP 99/59
== END 2018-02-03 11:05 | disposition home or self-care (01) | DRG 774 ==
LOC: JD.OBCHECK 00:01 → JD.OB 00:02 → JD.OBCHECK 02:37 → JD.OB 02:38 → OBSVTOIN 02-02 06:16 → JD.OB 02-02 06:17
PROVIDERS: ADMIT Obstetrics & Gynecology; ATTEND Obstetrics & Gynecology
PROC: 00HU33Z Insertion of Infusion Device into Spinal Canal, Percutaneous Approach (ICD-10-PCS; 2018-02-01)
PROC: 3E0R3BZ Introduction of Anesthetic Agent into Spinal Canal, Percutaneous Approach (ICD-10-PCS; 2018-02-01)
PROC: 10E0XZZ Delivery of Products of Conception, External Approach (ICD-10-PCS; principal; 2018-02-02)
PROC: 6A550ZT Pheresis of Cord Blood Stem Cells, Single (ICD-10-PCS; 2018-02-02)
PROC: 0UC97ZZ Extirpation of Matter from Uterus, Via Natural or Artificial Opening (ICD-10-PCS; 2018-02-02)
DX: O99.824 Streptococcus B carrier state complicating childbirth (principal); O72.1 Other immediate postpartum hemorrhage; Z37.0 Single live birth; O69.81X0 Labor and delivery complicated by cord around neck, without compression, not applicable or unspecified; Z3A.38 38 weeks gestation of pregnancy
CPT/HCPCS: 36415; 51702; 59025; 59409; 85027; 86850; 86900; 86901; A9270-GY; J0290; J2405; J2590; J3010; J7030; J7040; J7120

== ENCOUNTER 2019-08-03 10:04 | Inpatient (IN) | payer OTHER ==
[2019-08-03] MEDS ORDERED: Ampicillin 2 GM in Sodium Chloride 0.9% 100 ML IV ONE (10:30)
[2019-08-03] MEDS ORDERED: Ondansetron 4 MG/2 ML SDV IVPUSH PRN (11:33)
[2019-08-03] MEDS ORDERED: Sodium Chloride 0.9% 10 ML Syringe FLUSH PRN (11:33)
[2019-08-03] MEDS ORDERED: Nalbuphine 10 MG/1 ML Vial IVPUSH PRN (11:33)
[2019-08-03] MEDS ORDERED: Oxytocin/Lactated Ringers 10 UNIT/1,000 ML BAG IV SCH (11:45)
[2019-08-03] MEDS ORDERED: Lactated Ringers 1,000 ML IV SCH (11:45)
[2019-08-03] MEDS: Ampicillin 1 GM in Sodium Chloride 0.9% 100 ML IV SCH ×2 (14:24→18:42)
--- NOTE | 2019-08-03 17:25 | PCM.LDHP ---
L&D History of Present Illness - General Date of Service: 08/03/19 Admit Problem/Dx: Patient Status Order with Admit Dx/Problem 08/03/19 11:33 Patient Status [ADT] Routine Admission Diagnosis/Problem Admission Diagnosis/Problem Source of Information: Patient History Limitations: Reports: No Limitations - History of Present Illness Introduction:: Patient is a 34 y/o at 39 0/7 wks who presents in labor. Contractions noted the last few days. No LOF. Feeling well otherwise - Related Data Allergies/Adverse Reactions: Allergies Allergy/AdvReac Type Severity Reaction Status Date / Time No Known Allergies Allergy Verified 12/21/15 08:46 Home Medications: Home Meds PNV95/Ferrous Fumarate/FA [ Multivitamins] 1 tab PO DAILY 05/21/15 [ History] Past Medical History Gastrointestinal History: Reports: GERD, Other (See Below) Other Gastrointestinal History: Hematochezia ADJUNCT FACULTY FOR MEDICAL TERMINOLOGY History: Reports: Endometriosis, : 3 Para: 2 LMP (Approximate): - Past Surgical History GI Surgical History: Reports: Colonoscopy, EGD Female Surgical History: Reports: Other (See Below) (diagnostic laparoscopy) Social & Family History - Family History Family Medical History: Noncontributory - Tobacco Use Smoking Status *Q: Never Smoker Second Hand Smoke Exposure: No - Caffeine Use Caffeine Use: Reports: None - Alcohol Use Alcohol Use History: No - Recreational Drug Use Recreational Drug Use: No H&P Review of Systems - Review of Systems: Review Of Systems: See Below General: Reports: No Symptoms Pulmonary: Reports: No Symptoms Cardiovascular: Reports: No Symptoms Gastrointestinal: Reports: No Symptoms Genitourinary: Reports: No Symptoms Musculoskeletal: Reports: No Symptoms Psychiatric: Reports: No Symptoms Neurological: Reports: No Symptoms L&D Exam - Exam Exam: See Below - Vital Signs Vital Signs: Last Vital Signs Temp 36.3 C 08/03/19 10:59 Pulse 68 08/03/19 10:59 Resp 16 08/03/19 10:59 BP 95/45 L 08/03/19 10:59 Pulse Ox 96 08/03/19 10:59 Weight: 67.313 kg - OB Specific Contraction Intensity: Mild to Moderate Movement: Active Heart Tones: Present Heart Tones per Min: 145 Heart Rate (FHR) Variability: Moderate (6-25 bmp) Presentation: Vertex - Franklin Score Franklin Score Cervix Position: Midposition Franklin Score Consistency: Soft Franklin Score Effacement: >80% Franklin Score Dilation: > 5 cm Franklin Score 's Station: -2 Franklin Score Total: 10 - Exam General: Alert, Oriented, Cooperative Lungs: Clear to Auscultation, Normal Respiratory Effort Cardiovascular: Regular Rate, Regular Rhythm GI/Abdominal Exam: Soft, Non-Tender Genitourinary: Normal external exam Extremities: Normal Inspection Skin: Warm, Dry, Intact - Patient Data Lab Results Last 24 hrs: Laboratory Results - last 24 hr 08/03/19 08/03/19 08/03/19 Range/Units 11:59 11:59 11:59 WBC 5.87 (3.98-10.04) K/mm3 RBC 4.23 (3.98-5.22) M/mm3 Hgb 13.4 (11.2-15.7) gm/dl Hct 39.9 (34.1-44.9) % MCV 94.3 (79.4-94.8) fl MCH 31.7 (25.6-32.2) pg MCHC 33.6 (32.2-35.5) g/dl RDW Std Deviation 47.9 H (36.4-46.3) fL Plt Count 181 L (182-369) K/mm3 MPV 9.6 (9.4-12.3) fl Neut % (Auto) 71.7 H (34.0-71.1) % Lymph % (Auto) 19.6 (19.3-51.7) % [place] % (Auto) 7.0 (4.7-12.5) % Eos % (Auto) 1.2 (0.7-5.8) Baso % (Auto) 0.3 (0.1-1.2) % Neut # (Auto) 4.21 (1.56-6.13) K/mm3 Lymph # (Auto) 1.15 L (1.18-3.74) K/mm3 [place] # (Auto) 0.41 H (0.24-0.36) K/mm3 Eos # (Auto) 0.07 (0.04-0.36) K/mm3 Baso # (Auto) 0.02 (0.01-0.08) K/mm3 RPR Non-reactive (NONREACTIVE) Blood Type A POSITIVE Gel Antibody Screen Negative Result Diagrams: 08/03/19 11:59 - Problem List (1) 39 weeks gestation of SNOMED Code(s): 83270872 ICD Code: Z3A.39 - 39 WEEKS GESTATION OF Status: Acute Current Visit: Yes (2) GBS (group B Streptococcus carrier), +RV culture, currently SNOMED Code(s): 8524184294254, 576852363, 9282716002445 ICD Code: O99.820 - STREPTOCOCCUS B CARRIER STATE COMPLICATING Status: Acute Current Visit: Yes Problem List Initiated/Reviewed/Updated: Yes Orders Last 24hrs: Active Orders 24 hr Category Date Time Status Patient Status [ADT] Routine ADT 08/03/19 11:33 Active Activity as Tolerated [RC] PFP Care 08/03/19 11:33 Active Communication Order [RC] ASDIRECTED Care 08/03/19 11:33 Active Heart Tones [RC] ASDIRECTED Care 08/03/19 11:34 Active Non Stress Test [RC] PER UNIT ROUTINE Care 08/03/19 11:33 Active Notify Provider [RC] PFP Care 08/03/19 11:33 Active Notify Provider [RC] PRN Care 08/03/19 11:33 Active Peripheral IV Care [RC] . DIRECTED Care 08/03/19 11:34 Active Pump Management, Intrathecal [RC] ASDIRECTED Care 08/03/19 11:36 Active Urinary Catheter Assessment [RC] ASDIRECTED Care 08/03/19 11:33 Active Vital Signs [RC] PER UNIT ROUTINE Care 08/03/19 11:33 Active Regular Diet [DIET] Diet 08/03/19 Lunch Active Ampicillin 1 gm Med 08/03/19 14:30 Active Sodium Chloride 0.9% [Normal Saline] 100 ml IV Q4H Lactated Ringers [Ringers, Lactated] 1,000 ml Med 08/03/19 11:45 Active IV ASDIRECTED Nalbuphine [Nubain] Med 08/03/19 11:33 Active 10 mg IVPUSH Q2H PRN Ondansetron [Zofran] Med 08/03/19 11:33 Active 4 mg IVPUSH Q4H PRN Oxytocin/Lactated Ringers [Pitocin in LR 10 Units/1,000 Med 08/03/19 11:45 Active ML] 10 unit in 1,000 ml IV .CONTINUOUS Sodium Chloride 0.9% [Saline Flush] Med 08/03/19 11:33 Active 10 ml FLUSH ASDIRECTED PRN Electronic Heart Tones Ext w TOCO [WOMSER] Oth 08/03/19 11:33 Ordered Routine Electronic Heart Tones Internal [WOMSER] Per Unit Oth 08/03/19 11:33 Ordered Routine Peripheral IV Insertion Adult [OM.PC] Routine Oth 08/03/19 11:33 Ordered Resuscitation Status Routine Resus Stat 08/03/19 11:33 Ordered Medication Orders Ampicillin Sodium 1 gm/ Sodium (Chloride) 100 mls @ 200 mls/hr IV Q4H HUNTER Last Admin: 08/03/19 14:24 Dose: 200 mls/hr Lactated Ringer's (Ringers, Lactated) 1,000 mls @ 100 mls/hr IV ASDIRECTED HUNTER Last Admin: 08/03/19 10:30 Dose: 100 mls/hr Oxytocin/Lactated Ringer's (Pitocin In Lr 10 Units/1,000 Ml) 10 unit in 1,000 mls @ 500 mls/hr IV .CONTINUOUS HUNTER Nalbuphine HCl (Nubain) 10 mg IVPUSH Q2H PRN PRN Reason: Pain Ondansetron HCl (Zofran) 4 mg IVPUSH Q4H PRN PRN Reason: Nausea/Vomiting Sodium Chloride (Saline Flush) 10 ml FLUSH ASDIRECTED PRN PRN Reason: Keep Vein Open Assessment/Plan Comment:: 34 y/o at 39 0/7 wks who presents in labor * Labs * GBS positive, start Ampicillin * Pain management per patient preference * Anticipate
--- NOTE | 2019-08-03 21:46 | PCM.PNPP ---
- General Info Date of Service: 08/03/19 - Patient Data Vital Signs - Most Recent: Last Vital Signs Temp 36.3 C 08/03/19 10:59 Pulse 68 08/03/19 10:59 Resp 16 08/03/19 10:59 BP 95/45 L 08/03/19 10:59 Pulse Ox 96 08/03/19 10:59 Weight - Most Recent: 67.313 kg I&O - Last 24 Hours: Intake & Output 08/03/19 08/03/19 08/03/19 06:59 14:59 22:59 Intake Total 980 Output Total 1400 Balance -1400 980 Lab Results - Last 24 Hours: Laboratory Results - last 24 hr 08/03/19 08/03/19 08/03/19 Range/Units 11:59 11:59 11:59 WBC 5.87 (3.98-10.04) K/mm3 RBC 4.23 (3.98-5.22) M/mm3 Hgb 13.4 (11.2-15.7) gm/dl Hct 39.9 (34.1-44.9) % MCV 94.3 (79.4-94.8) fl MCH 31.7 (25.6-32.2) pg MCHC 33.6 (32.2-35.5) g/dl RDW Std Deviation 47.9 H (36.4-46.3) fL Plt Count 181 L (182-369) K/mm3 MPV 9.6 (9.4-12.3) fl Neut % (Auto) 71.7 H (34.0-71.1) % Lymph % (Auto) 19.6 (19.3-51.7) % [place] % (Auto) 7.0 (4.7-12.5) % Eos % (Auto) 1.2 (0.7-5.8) Baso % (Auto) 0.3 (0.1-1.2) % Neut # (Auto) 4.21 (1.56-6.13) K/mm3 Lymph # (Auto) 1.15 L (1.18-3.74) K/mm3 [place] # (Auto) 0.41 H (0.24-0.36) K/mm3 Eos # (Auto) 0.07 (0.04-0.36) K/mm3 Baso # (Auto) 0.02 (0.01-0.08) K/mm3 RPR Non-reactive (NONREACTIVE) Blood Type A POSITIVE Gel Antibody Screen Negative Med Orders - Current: Current Medications Ampicillin Sodium 1 gm/ Sodium (Chloride) 100 mls @ 200 mls/hr IV Q4H HUNTER Last Admin: 08/03/19 18:42 Dose: 200 mls/hr Lactated Ringer's (Ringers, Lactated) 1,000 mls @ 100 mls/hr IV ASDIRECTED HUNTER Last Admin: 08/03/19 10:30 Dose: 100 mls/hr Oxytocin/Lactated Ringer's (Pitocin In Lr 10 Units/1,000 Ml) 10 unit in 1,000 mls @ 500 mls/hr IV .CONTINUOUS HUNTER Last Admin: 08/03/19 21:32 Dose: 500 mls/hr Nalbuphine HCl (Nubain) 10 mg IVPUSH Q2H PRN PRN Reason: Pain Ondansetron HCl (Zofran) 4 mg IVPUSH Q4H PRN PRN Reason: Nausea/Vomiting Last Admin: 08/03/19 19:04 Dose: 4 mg Sodium Chloride (Saline Flush) 10 ml FLUSH ASDIRECTED PRN PRN Reason: Keep Vein Open Discontinued Medications Ampicillin Sodium 2 gm/ Sodium (Chloride) 100 mls @ 200 mls/hr IV ONETIME ONE Stop: 08/03/19 10:59 Last Admin: 08/03/19 10:30 Dose: 200 mls/hr - Infant Interaction Support Person: , Mother - Problem List & Annotations (1) 39 weeks gestation of SNOMED Code(s): 86047133 Code(s): Z3A.39 - 39 WEEKS GESTATION OF Status: Acute Current Visit: Yes (2) GBS (group B Streptococcus carrier), +RV culture, currently SNOMED Code(s): 1631503724124, 133420093, 5532737821332 Code(s): O99.820 - STREPTOCOCCUS B CARRIER STATE COMPLICATING Status: Acute Current Visit: Yes - My Orders Last 24 Hours: My Active Orders 08/03/19 11:33 Patient Status [ADT] Routine Activity as Tolerated [RC] PFP Communication Order [RC] ASDIRECTED Non Stress Test [RC] PER UNIT ROUTINE Notify Provider [RC] PFP Notify Provider [RC] PRN Urinary Catheter Assessment [RC] ASDIRECTED Vital Signs [RC] PER UNIT ROUTINE Nalbuphine [Nubain] 10 mg IVPUSH Q2H PRN Ondansetron [Zofran] 4 mg IVPUSH Q4H PRN Sodium Chloride 0.9% [Saline Flush] 10 ml FLUSH ASDIRECTED PRN Electronic Heart Tones Ext w TOCO [WOMSER] Routine Electronic Heart Tones Internal [WOMSER] Per Unit Routine Peripheral IV Insertion Adult [OM.PC] Routine Resuscitation Status Routine 08/03/19 11:34 Heart Tones [RC] ASDIRECTED Peripheral IV Care [RC] . DIRECTED 08/03/19 11:36 Pump Management, Intrathecal [RC] ASDIRECTED 08/03/19 11:45 Lactated Ringers [Ringers, Lactated] 1,000 ml IV ASDIRECTED Oxytocin/Lactated Ringers [Pitocin in LR 10 Units/1,000 ML] 10 unit in 1,000 ml IV .CONTINUOUS 08/03/19 14:30 Ampicillin 1 gm Sodium Chloride 0.9% [Normal Saline] 100 ml IV Q4H 08/03/19 Lunch Regular Diet [DIET] - Plan Plan:: 34 y/o at 39 0/7 wks who presents in labor * Labs * GBS positive, start Ampicillin * Pain management per patient preference * Anticipate
[2019-08-03] MEDS ORDERED: Acetaminophen 325 MG Tab PO PRN (22:11)
[2019-08-03] MEDS ORDERED: Benzocaine/Menthol 20%-0.5% Spray 56 GM Canister TOP PRN (22:11)
[2019-08-03] MEDS ORDERED: Docusate Sodium 100 MG Cap PO PRN (22:11)
[2019-08-03] MEDS ORDERED: Witch Hazel Medicated Pads 40/Jar TOP PRN (22:11)
[2019-08-03] MEDS: Ibuprofen 600 MG Tab PO PRN (23:59)
--- NOTE | 2019-08-04 07:05 | PCM.DEL ---
L & D Note - General Info Date of Service: 08/03/19 - Delivery Note Labor: Spontaneous Delivery Outcome: Livebirth Delivery Method: Spontaneous Vaginal Delivery-Single Delivery Mode: Spontaneous Presentation: Left Occiput Anterior (ROZ) Nuchal Cord: None Anesthesia Type: None Amniotic Fluid Description: Clear Episiotomy Type: None Laceration: None Placenta: Intact, Spontaneous Cord: 3 Vessels Estimated Blood Loss: 100 Resuscitation Needed: Yes : Bulb Syringe, Stimulated, Warmed, [place] Used Score 1 min: 8 Score 5 min: 9 Delivery Comments (Free Text/Narrative):: Patient found to be complete and began pushing. With maternal pushing effort head delivered from ROZ presentation. No nuchal cord present. With gentle downward traction shoulders and body delivered. placed on maternal abdomen. Cord clamped and cut. Cord blood obtained. Placenta allowed time to separate and expelled intact. Inspection of the perineum showed no lacerations. - General Info Date of Service: 08/03/19 - Patient Data Vitals - Most Recent: Last Vital Signs Temp 36.2 C 08/04/19 03:00 Pulse 57 L 08/04/19 03:00 Resp 15 08/04/19 03:00 BP 101/66 08/04/19 03:00 Pulse Ox 99 08/04/19 03:00 Weight - Most Recent: 67.313 kg I&O - Last 24 Hours: Intake & Output 08/03/19 08/03/19 08/04/19 14:59 22:59 06:59 Intake Total 1979 Output Total 1400 Balance -1400 1979 - Problem List & Annotations (1) 39 weeks gestation of SNOMED Code(s): 41621614 Code(s): Z3A.39 - 39 WEEKS GESTATION OF Status: Acute Current Visit: Yes (2) GBS (group B Streptococcus carrier), +RV culture, currently SNOMED Code(s): 8851924698044, 220538053, 5966771969403 Code(s): O99.820 - STREPTOCOCCUS B CARRIER STATE COMPLICATING Status: Acute Current Visit: Yes (3) Vaginal delivery SNOMED Code(s): 034668925 Code(s): O80 - ENCOUNTER FOR FULL-TERM UNCOMPLICATED DELIVERY Status: Acute Current Visit: No - Problem List Review Problem List Initiated/Reviewed/Updated: Yes - My Orders Last 24 Hours: My Active Orders 08/03/19 11:33 Urinary Catheter Assessment [RC] ASDIRECTED Vital Signs [RC] PER UNIT ROUTINE Resuscitation Status Routine 08/03/19 11:34 Heart Tones [RC] ASDIRECTED 08/03/19 22:11 Activity as Tolerated [RC] PER UNIT ROUTINE Vital Signs [RC] 09,15,03,21 Acetaminophen [Tylenol] 650 mg PO Q4H PRN Benzocaine/Menthol [Dermoplast Pain Relief [place]] See Dose Instructions TOP ASDIRECTED PRN Docusate Sodium [Colace] 100 mg PO BID PRN Ibuprofen [Motrin] 600 mg PO Q6H PRN Witch Danielle [Tucks] 1 pad TOP ASDIRECTED PRN Assess Lochia [WOMSER] Per Unit Routine Assess Uterine Involution [WOMSER] Per Unit Routine Breast Pump [WOMSER] Per Unit Routine Heat Therapy [OM.PC] PRN Ice Therapy [OM.PC] Per Unit Routine Perineal Care [OM.PC] Per Unit Routine Peripheral IV Discontinue [OM.PC] Routine Sitz Bath [OM.PC] Per Unit Routine 08/03/19 Dinner Regular Diet [DIET] 08/04/19 22:11 Heat Therapy [OM.PC] PRN - Assessment Assessment:: 34 y/o G3 now P3003 PPD#0 from at 39 0/7 wks - Plan Plan:: * Routine cares * Encourage breast feeding * Discharge home in 2 days
[2019-08-04] MEDS: Ibuprofen 600 MG Tab PO PRN ×2 (08:27→14:53)
--- NOTE | 2019-08-04 09:09 | PCM.PNPP ---
- General Info Date of Service: 08/04/19 Functional Status: Reports: Pain Controlled, Tolerating Diet, Ambulating, Urinating - Review of Systems General: Reports: No Symptoms Pulmonary: Reports: No Symptoms Cardiovascular: Reports: No Symptoms Gastrointestinal: Reports: No Symptoms Genitourinary: Reports: Other (slgiht perineal pain) Musculoskeletal: Reports: No Symptoms - Patient Data Vital Signs - Most Recent: Last Vital Signs Temp 36.2 C 08/04/19 03:00 Pulse 57 L 08/04/19 03:00 Resp 15 08/04/19 03:00 BP 101/66 08/04/19 03:00 Pulse Ox 99 08/04/19 03:00 Weight - Most Recent: 67.313 kg I&O - Last 24 Hours: Intake & Output 08/03/19 08/04/19 08/04/19 22:59 06:59 14:59 Intake Total 1979 Balance 1979 Lab Results - Last 24 Hours: Laboratory Results - last 24 hr 08/03/19 08/03/19 08/03/19 Range/Units 11:59 11:59 11:59 WBC 5.87 (3.98-10.04) K/mm3 RBC 4.23 (3.98-5.22) M/mm3 Hgb 13.4 (11.2-15.7) gm/dl Hct 39.9 (34.1-44.9) % MCV 94.3 (79.4-94.8) fl MCH 31.7 (25.6-32.2) pg MCHC 33.6 (32.2-35.5) g/dl RDW Std Deviation 47.9 H (36.4-46.3) fL Plt Count 181 L (182-369) K/mm3 MPV 9.6 (9.4-12.3) fl Neut % (Auto) 71.7 H (34.0-71.1) % Lymph % (Auto) 19.6 (19.3-51.7) % [place] % (Auto) 7.0 (4.7-12.5) % Eos % (Auto) 1.2 (0.7-5.8) Baso % (Auto) 0.3 (0.1-1.2) % Neut # (Auto) 4.21 (1.56-6.13) K/mm3 Lymph # (Auto) 1.15 L (1.18-3.74) K/mm3 [place] # (Auto) 0.41 H (0.24-0.36) K/mm3 Eos # (Auto) 0.07 (0.04-0.36) K/mm3 Baso # (Auto) 0.02 (0.01-0.08) K/mm3 RPR Non-reactive (NONREACTIVE) Blood Type A POSITIVE Gel Antibody Screen Negative Med Orders - Current: Current Medications Acetaminophen (Tylenol) 650 mg PO Q4H PRN PRN Reason: mild pain or fever Last Admin: 08/04/19 03:25 Dose: 650 mg Benzocaine/Menthol (Dermoplast Pain Relief [place]) 0 gm TOP ASDIRECTED PRN PRN Reason: Perineal Comfort Measure Docusate Sodium (Colace) 100 mg PO BID PRN PRN Reason: Constipation Ibuprofen (Motrin) 600 mg PO Q6H PRN PRN Reason: Mild pain or fever Last Admin: 08/04/19 08:27 Dose: 600 mg Witch Danielle (Tucks) 1 pad TOP ASDIRECTED PRN PRN Reason: Perineal Comfort Measure Last Admin: 08/04/19 00:00 Dose: 1 pad Discontinued Medications Ampicillin Sodium 2 gm/ Sodium (Chloride) 100 mls @ 200 mls/hr IV ONETIME ONE Stop: 08/03/19 10:59 Last Admin: 08/03/19 10:30 Dose: 200 mls/hr Ampicillin Sodium 1 gm/ Sodium (Chloride) 100 mls @ 200 mls/hr IV Q4H HUNTER Last Admin: 08/03/19 18:42 Dose: 200 mls/hr Lactated Ringer's (Ringers, Lactated) 1,000 mls @ 100 mls/hr IV ASDIRECTED HUNTER Last Admin: 08/03/19 10:30 Dose: 100 mls/hr Oxytocin/Lactated Ringer's (Pitocin In Lr 10 Units/1,000 Ml) 10 unit in 1,000 mls @ 500 mls/hr IV .CONTINUOUS HUNTER Last Admin: 08/03/19 21:32 Dose: 500 mls/hr Nalbuphine HCl (Nubain) 10 mg IVPUSH Q2H PRN PRN Reason: Pain Ondansetron HCl (Zofran) 4 mg IVPUSH Q4H PRN PRN Reason: Nausea/Vomiting Last Admin: 08/03/19 19:04 Dose: 4 mg Sodium Chloride (Saline Flush) 10 ml FLUSH ASDIRECTED PRN PRN Reason: Keep Vein Open - Infant Interaction Infant Disposition, : [place] in Room with Family Infant Interaction: Holding Feeding: Breastfed ; Nursed Well Support Person: , Mother - Recovery Exam Fundal Tone: Firm Fundal Level: 2 Fingerbreadths Below Umbilicus Fundal Placement: Midline Lochia Amount: Small, Moderate Lochia Color: Rubra/Red Perineum Description: Intact, Minimal Bruising/Swelling Episiotomy/Laceration: None Bladder Status: Voiding - Exam General: Alert, Oriented, Cooperative GI/Abdominal Exam: Soft, Non-Tender Extremities: Normal Inspection Skin: Warm, Dry, Intact - Problem List & Annotations (1) 39 weeks gestation of SNOMED Code(s): 55268675 Code(s): Z3A.39 - 39 WEEKS GESTATION OF Status: Acute Current Visit: Yes (2) GBS (group B Streptococcus carrier), +RV culture, currently SNOMED Code(s): 0544148228439, 640930650, 1254403543303 Code(s): O99.820 - STREPTOCOCCUS B CARRIER STATE COMPLICATING Status: Acute Current Visit: Yes (3) Vaginal delivery SNOMED Code(s): 536830098 Code(s): O80 - ENCOUNTER FOR FULL-TERM UNCOMPLICATED DELIVERY Status: Acute Current Visit: No - Problem List Review Problem List Initiated/Reviewed/Updated: Yes - My Orders Last 24 Hours: My Active Orders 08/03/19 11:33 Urinary Catheter Assessment [RC] ASDIRECTED Vital Signs [RC] PER UNIT ROUTINE Resuscitation Status Routine 08/03/19 11:34 Heart Tones [RC] ASDIRECTED 08/03/19 22:11 Activity as Tolerated [RC] PER UNIT ROUTINE Vital Signs [RC] 09,15,03,21 Acetaminophen [Tylenol] 650 mg PO Q4H PRN Benzocaine/Menthol [Dermoplast Pain Relief [place]] See Dose Instructions TOP ASDIRECTED PRN Docusate Sodium [Colace] 100 mg PO BID PRN Ibuprofen [Motrin] 600 mg PO Q6H PRN Witch Danielle [Tucks] 1 pad TOP ASDIRECTED PRN Assess Lochia [WOMSER] Per Unit Routine Assess Uterine Involution [WOMSER] Per Unit Routine Breast Pump [WOMSER] Per Unit Routine Heat Therapy [OM.PC] PRN Ice Therapy [OM.PC] Per Unit Routine Perineal Care [OM.PC] Per Unit Routine Peripheral IV Discontinue [OM.PC] Routine Sitz Bath [OM.PC] Per Unit Routine 08/03/19 Dinner Regular Diet [DIET] 08/04/19 22:11 Heat Therapy [OM.PC] PRN - Assessment Assessment:: 34 y/o G3 now P3003 PPD#1 from at 39 0/7 wks - Plan Plan:: * Routine cares * Encourage breast feeding * Discharge home tomorrow
[2019-08-05] MEDS: Ibuprofen 600 MG Tab PO PRN (04:20)
--- NOTE | 2019-08-05 06:54 | PCM.DCSUM1 ---
Discharge Summary - Hospital Course Brief History: Admitted in labor. of viable male. Diagnosis: Stroke: No - Discharge Data Discharge Date: 08/05/19 Discharge Disposition: Home, Self-Care 01 Condition: Good - Referral to Home Health Primary Care Physician: Jammie Todd MD - Patient Instructions Diet: Usual Diet as Tolerated Activity: No Strenuous Activities Activity, Other: pelvic rest Driving: May Drive Today Showering/Bathing: May Shower Notify Provider of: Fever, Increased Pain, Swelling and Redness, Drainage, Nausea and/or Vomiting - Discharge Plan *PRESCRIPTION DRUG MONITORING PROGRAM REVIEWED*: No *COPY OF PRESCRIPTION DRUG MONITORING REPORT IN PATIENT FABIAN: No Home Medications: Home Meds PNV95/Ferrous Fumarate/FA [ Multivitamins] 1 tab PO DAILY 05/21/15 [ History] Referrals: Jammie Todd MD [Primary Care Provider] - (2 weeks) - Discharge Summary/Plan Comment DC Time >30 min.: No - General Info Date of Service: 08/05/19 Functional Status: Reports: Pain Controlled - Review of Systems General: Reports: No Symptoms HEENT: Reports: No Symptoms Pulmonary: Reports: No Symptoms Cardiovascular: Reports: No Symptoms Gastrointestinal: Reports: No Symptoms Genitourinary: Reports: No Symptoms Musculoskeletal: Reports: No Symptoms Skin: Reports: No Symptoms Neurological: Reports: No Symptoms Psychiatric: Reports: No Symptoms - Patient Data Vitals - Most Recent: Last Vital Signs Temp 36.4 C 08/05/19 04:10 Pulse 58 L 08/05/19 04:10 Resp 14 08/05/19 04:10 BP 93/64 08/05/19 04:10 Pulse Ox 99 08/05/19 04:10 Weight - Most Recent: 67.313 kg I&O - Last 24 hours: Intake & Output 08/04/19 08/04/19 08/05/19 14:59 22:59 06:59 Intake Total 540 Balance 540 Med Orders - Current: Current Medications Acetaminophen (Tylenol) 650 mg PO Q4H PRN PRN Reason: mild pain or fever Last Admin: 08/04/19 03:25 Dose: 650 mg Benzocaine/Menthol (Dermoplast Pain Relief [place]) 0 gm TOP ASDIRECTED PRN PRN Reason: Perineal Comfort Measure Docusate Sodium (Colace) 100 mg PO BID PRN PRN Reason: Constipation Ibuprofen (Motrin) 600 mg PO Q6H PRN PRN Reason: Mild pain or fever Last Admin: 08/05/19 04:20 Dose: 600 mg Witch Danielle (Tucks) 1 pad TOP ASDIRECTED PRN PRN Reason: Perineal Comfort Measure Last Admin: 08/04/19 00:00 Dose: 1 pad Discontinued Medications Ampicillin Sodium 2 gm/ Sodium (Chloride) 100 mls @ 200 mls/hr IV ONETIME ONE Stop: 08/03/19 10:59 Last Admin: 08/03/19 10:30 Dose: 200 mls/hr Ampicillin Sodium 1 gm/ Sodium (Chloride) 100 mls @ 200 mls/hr IV Q4H HUNTER Last Admin: 08/03/19 18:42 Dose: 200 mls/hr Lactated Ringer's (Ringers, Lactated) 1,000 mls @ 100 mls/hr IV ASDIRECTED HUNTER Last Admin: 08/03/19 10:30 Dose: 100 mls/hr Oxytocin/Lactated Ringer's (Pitocin In Lr 10 Units/1,000 Ml) 10 unit in 1,000 mls @ 500 mls/hr IV .CONTINUOUS HUNTER Last Admin: 08/03/19 21:32 Dose: 500 mls/hr Nalbuphine HCl (Nubain) 10 mg IVPUSH Q2H PRN PRN Reason: Pain Ondansetron HCl (Zofran) 4 mg IVPUSH Q4H PRN PRN Reason: Nausea/Vomiting Last Admin: 08/03/19 19:04 Dose: 4 mg Sodium Chloride (Saline Flush) 10 ml FLUSH ASDIRECTED PRN PRN Reason: Keep Vein Open - Exam General: Reports: Alert, Oriented HEENT: Reports: Pupils Equal, Pupils Reactive, EOMI, Mucous Membr. Moist/[place] Neck: Reports: Supple Lungs: Reports: Clear to Auscultation, Normal Respiratory Effort Cardiovascular: Reports: Regular Rate, Regular Rhythm GI/Abdominal Exam: Normal Bowel Sounds, Soft, Non-Tender, No Organomegaly, No Distention, No Abnormal Bruit, No Mass, Pelvis Stable Rectal (Female) Exam: Normal Exam, Normal Rectal Tone Back Exam: Reports: Normal Inspection, Full Range of Motion Extremities: Normal Inspection, Normal Range of Motion, Non-Tender, No Pedal Edema, Normal Capillary Refill Skin: Reports: Warm, Dry, Intact Wound/Incisions: Reports: Healing Well Neurological: Reports: No New Focal Deficit Psy/Mental Status: Reports: Alert, Normal Affect, Normal Mood
[2019-08-05 08:43] VITALS: BP 92/49; PULSE 50
== END 2019-08-05 09:30 | disposition home or self-care (01) | DRG 807 ==
LOC: JD.OBCHECK 10:04 → JD.OB 10:14 → JD.OBCHECK 10:15 → JD.OB 10:15 → OBSVTOIN 21:30 → JD.MS 21:31 → JD.OB 08-04 14:32
PROVIDERS: ADMIT Obstetrics & Gynecology; ATTEND Obstetrics & Gynecology
PROC: 10E0XZZ Delivery of Products of Conception, External Approach (ICD-10-PCS; principal; 2019-08-03)
PROC: 10907ZC Drainage of Amniotic Fluid, Therapeutic from Products of Conception, Via Natural or Artificial Opening (ICD-10-PCS; 2019-08-03)
DX: O99.824 Streptococcus B carrier state complicating childbirth (principal); Z37.0 Single live birth; Z3A.39 39 weeks gestation of pregnancy
CPT/HCPCS: 36415; 59025; 59409; 85025; 86592; 86850; 86900; 86901; A9270-GY; J0290; J2405; J2590; J7030; J7120

== ENCOUNTER 2020-04-05 07:50 | Emergency (ER) | payer OTHER ==
[2020-04-05 08:07] VITALS: BP 98/64; PULSE 74
[2020-04-05] MEDS ORDERED: Acetaminophen 325 MG Tab PO PRN (08:12)
[2020-04-05] MEDS ORDERED: Ondansetron 4 MG/2 ML SDV IVPUSH ONE (08:13)
[2020-04-05] MEDS ORDERED: Dextrose 5%-0.9% NaCl 1,000 ML IV SCH (08:15)
--- NOTE | 2020-04-05 08:17 | EDM.PDOC ---
ED HPI GENERAL MEDICAL PROBLEM - General Chief Complaint: General Stated Complaint: CHILLS AND KIDNEY PAIN Time Seen by Provider: 04/05/20 08:12 Source of Information: Reports: Patient, Family (spouse) History Limitations: Reports: No Limitations - History of Present Illness INITIAL COMMENTS - FREE TEXT/NARRATIVE: 35-year-old female presents to the ED in the accompaniment of her . History suggest that she has been experiencing intermittent fever chills and hot sweats off and on for the better part of 5 to 6 days. She does have some mild urgency but no true dysuria. She is still breast-feeding. Her infant is 8 months old. She finds no tenderness in the breasts to account for fever and chills. Complains of diffuse lower abdominal pain and low back pain. Started having nausea and vomiting during the night and again this morning. She pumped her breast this morning. She feels weak lightheaded and dizzy upon standing. She has had 1 previous UTI and kidney infection. No known kidney stones. Denies cough or sputum production. Appetite is pretty well gone. Onset: Gradual Onset Date: 03/31/20 Duration: Day(s):, Getting Worse Location: Reports: Abdomen (Treatment fever chills with loss of appetite.), Back ( Diffuse lower abdominal pain diffuse lower back pain), Generalized Quality: Reports: Ache Severity: Moderate Improves with: Reports: None Worsens with: Reports: None Context: Reports: Other (Spontaneous occurrence of diffuse lower abdominal pain and back pain associated with some urinary urgency.). Denies: Activity, Exercise, Lifting, Sick Contact, Trauma Treatments TABLE AND DESK FINISHER: Reports: Acetaminophen Pelvic Pain Score (Numeric/FACES): 6 - Related Data Allergies Allergy/AdvReac Type Severity Reaction Status Date / Time No Known Allergies Allergy Verified 04/05/20 08:06 Home Meds: Home Meds [id number]/Ferrous Fumarate/FA [ Multivitamins] 1 tab PO DAILY 05/21/15 [History] Cefdinir [Omnicef] 300 mg PO BID #20 cap 04/05/20 [Rx] metroNIDAZOLE [Flagyl] 500 mg PO Q8H #21 tab 04/05/20 [Rx] Past Medical History - Past Health History Medical/Surgical History: Denies Medical/Surgical History HEENT History: Reports: None Gastrointestinal History: Reports: GERD, Other (See Below) Other Gastrointestinal History: Hematochezia GASTROENTEROLOGY NURSE PRACTITIONER History: Reports: Endometriosis, Other GASTROENTEROLOGY NURSE PRACTITIONER History: laproscopic surgery "to cauterize it" for endometriosis. Problems with conception. - Past Surgical History GI Surgical History: Reports: Colonoscopy, EGD Social & Family History - Family History Family Medical History: Noncontributory - Tobacco Use Smoking Status *Q: Never Smoker - Caffeine Use Caffeine Use: Reports: None - Living Situation & Occupation Living situation: Reports: Occupation: Employed ED ROS GENERAL - Review of Systems Review Of Systems: See Below Constitutional: Reports: Fever, Chills, Malaise, Weakness, Fatigue, Decreased Appetite, Weight Loss HEENT: Reports: No Symptoms Respiratory: Reports: No Symptoms. Denies: Shortness of Breath, Cough, Sputum Cardiovascular: Reports: No Symptoms Endocrine: Reports: Fatigue GI/Abdominal: Reports: Abdominal Pain (Described as a constant aching discomfort.), Anorexia, Nausea, Vomiting (Vomited once last night and once again this morning. Bilious emesis. No blood). Denies: Constipation, Diarrhea, Decreased Appetite, Difficulty Swallowing, Distension, Flatus, Hematemesis, Hematochezia, Melena, Mucous in Stool, Stool Incontinence : Reports: Dysuria, Frequency (Minimal dysuria.), Urgency (Strong sense of urgency.) Musculoskeletal: Reports: Back Pain (Diffuse low back pain bilaterally) Skin: Reports: No Symptoms Neurological: Reports: Dizziness, Weakness. Denies: Headache, Numbness, Paresthesia, Pre-Existing Deficit, Seizure, Syncope, Tingling, Tremors, Trouble Speaking, Difficulty Walking Psychiatric: Reports: No Symptoms Hematologic/Lymphatic: Reports: No Symptoms Immunologic: Reports: No Symptoms ED EXAM, GENERAL - Physical Exam Exam: See Below Exam Limited By: No Limitations General Appearance: Alert, WD/WN, No Apparent Distress, Other (Temperature is 36.6 although she feels warmer than this. Pulse is 74 respiratory 16 with O2 sats of 97% room air. BP 98/64) Eye Exam: Bilateral Eye: Normal Inspection, PERRL Throat/Mouth: Normal Inspection, Normal Lips, Normal Teeth, Other (Is mildly dry and coated.) Head: Atraumatic, Normocephalic Neck: Normal Inspection, Supple, Non-Tender, Full Range of Motion. No: Carotid Bruit, Lymphadenopathy (L), Lymphadenopathy (R) Respiratory/Chest: No Respiratory Distress, Lungs Clear, Normal Breath Sounds, No Accessory Muscle Use Cardiovascular: Normal Peripheral Pulses, Regular Rate, Rhythm, No Edema, No Gallop, No Murmur, No Rub GI/Abdominal: Normal Bowel Sounds, Soft, Non-Tender, No Organomegaly, No Abnormal Bruit, No Mass, Pelvis Stable, Tender (Mildly tender to palpation across the suprapubic abdomen.). No: Guarding, Rigid, Rebound Extremities: Normal Inspection, Normal Range of Motion, Non-Tender, No Pedal Edema Neurological: Alert, Oriented, CN II-XII Intact, Normal Cognition Psychiatric: Normal Affect, Normal Mood Skin Exam: Warm, Dry, Intact, Normal Color, No Rash Course - Vital Signs Last Recorded V/S: Last Vital Signs Temp 36.6 C 04/05/20 08:03 Pulse 74 04/05/20 08:03 Resp 16 04/05/20 08:03 BP 98/64 04/05/20 08:03 Pulse Ox 97 04/05/20 08:03 - Orders/Labs/Meds Orders: Active Orders 24 hr Category Date Time Status Chest 1V Frontal [CR] Stat Exams 04/05/20 09:20 Taken CULTURE BLOOD [BC] Stat Lab 04/05/20 08:25 Received CULTURE BLOOD [BC] Stat Lab 04/05/20 08:30 Received Acetaminophen [Tylenol] Med 04/05/20 08:12 Active 650 mg PO Q4H PRN Dextrose 5%-0.9% NaCl [Dextrose 5%-Normal Saline] 1,000 Med 04/05/20 08:15 Active ml IV ASDIRECTED Blood Culture x2 Reflex Set [OM.PC] Stat Oth 04/05/20 08:13 Ordered Medication Orders Acetaminophen (Tylenol) 650 mg PO Q4H PRN PRN Reason: Pain Last Admin: 04/05/20 08:26 Dose: 650 mg Documented by: BRIAN Dextrose/Sodium Chloride (Dextrose 5%-Normal Saline) 1,000 mls @ 999 mls/hr IV ASDIRECTED HUNTER Last Admin: 04/05/20 08:25 Dose: 999 mls/hr Documented by: BRIAN Labs: Laboratory Tests 04/05/20 04/05/20 04/05/20 Range/Units 08:20 08:25 08:25 WBC 2.20 L* (3.98-10.04) K/mm3 RBC 4.79 (3.98-5.22) M/mm3 Hgb 14.6 (11.2-15.7) gm/dl Hct 43.4 (34.1-44.9) % MCV 90.6 D (79.4-94.8) fl MCH 30.5 (25.6-32.2) pg MCHC 33.6 (32.2-35.5) g/dl RDW Std Deviation 43.0 (36.4-46.3) fL Plt Count 177 L (182-369) K/mm3 MPV 10.6 (9.4-12.3) fl Neutrophils % (Manual) 62 H (40-60) % Band Neutrophils % 0 (0-10) % Lymphocytes % (Manual) 26 (20-40) % Atypical Lymphs % 0 % Monocytes % (Manual) 12 H (2-10) % Eosinophils % (Manual) 0 L (0.7-5.8) % Basophils % (Manual) 0 L (0.1-1.2) Platelet Estimate Adequate RBC Morph Comment Normal Sodium 137 (136-145) mEq/L Potassium 4.0 (3.5-5.1) mEq/L Chloride 100 (98-107) mEq/L Carbon Dioxide 27 (21-32) mEq/L Anion Gap 14.0 (5-15) BUN 12 (7-18) mg/dL Creatinine 1.1 H (0.55-1.02) mg/dL Est Cr Clr Drug Dosing TNP Estimated GFR (MDRD) 57 (>60) mL/min BUN/Creatinine Ratio 10.9 L (14-18) Glucose 98 (74-106) mg/dL Lactic Acid (0.4-2.0) mmol/L Calcium 8.8 (8.5-10.1) mg/dL Magnesium 2.1 (1.8-2.4) mg/dl Total Bilirubin 0.5 (0.2-1.0) mg/dL AST 26 (15-37) U/L ALT 24 (14-59) U/L Alkaline Phosphatase 81 (46-116) U/L C-Reactive Protein 0.3 (<1.0) mg/dL Total Protein 7.6 (6.4-8.2) g/dl Albumin 4.1 (3.4-5.0) g/dl Globulin 3.5 gm/dL Albumin/Globulin Ratio 1.2 (1-2) Urine Color Yellow (Yellow) Urine Appearance Clear (Clear) Urine pH 7.0 (5.0-8.0) Ur Specific [place] 1.025 (1.005-1.030) Urine Protein 1+ H (Negative) Urine Glucose (UA) Negative (Negative) Urine Ketones Negative (Negative) Urine Occult Blood 2+ H (Negative) Urine Nitrite Negative (Negative) Urine Bilirubin Negative (Negative) Urine Urobilinogen 0.2 (0.2-1.0) Ur Leukocyte Esterase Negative (Negative) U Hyaline Cast (Auto) 0-5 (0-5) /lpf Urine RBC 0-5 (0-5) /hpf Urine WBC 0-5 (0-5) /hpf Ur Squamous Epith Cells 0-5 (0-5) /hpf Urine Bacteria Few (FEW) /hpf Urine Mucus Rare (FEW) /hpf Ketones (0.0-0.3) mM 04/05/20 04/05/20 Range/Units 08:25 08:25 WBC (3.98-10.04) K/mm3 RBC (3.98-5.22) M/mm3 Hgb (11.2-15.7) gm/dl Hct (34.1-44.9) % MCV (79.4-94.8) fl MCH (25.6-32.2) pg MCHC (32.2-35.5) g/dl RDW Std Deviation (36.4-46.3) fL Plt Count (182-369) K/mm3 MPV (9.4-12.3) fl Neutrophils % (Manual) (40-60) % Band Neutrophils % (0-10) % Lymphocytes % (Manual) (20-40) % Atypical Lymphs % % Monocytes % (Manual) (2-10) % Eosinophils % (Manual) (0.7-5.8) % Basophils % (Manual) (0.1-1.2) Platelet Estimate RBC Morph Comment Sodium (136-145) mEq/L Potassium (3.5-5.1) mEq/L Chloride (98-107) mEq/L Carbon Dioxide (21-32) mEq/L Anion Gap (5-15) BUN (7-18) mg/dL Creatinine (0.55-1.02) mg/dL Est Cr Clr Drug Dosing Estimated GFR (MDRD) (>60) mL/min BUN/Creatinine Ratio (14-18) Glucose (74-106) mg/dL Lactic Acid 0.5 (0.4-2.0) mmol/L Calcium (8.5-10.1) mg/dL Magnesium (1.8-2.4) mg/dl Total Bilirubin (0.2-1.0) mg/dL AST (15-37) U/L ALT (14-59) U/L Alkaline Phosphatase (46-116) U/L C-Reactive Protein (<1.0) mg/dL Total Protein (6.4-8.2) g/dl Albumin (3.4-5.0) g/dl Globulin gm/dL Albumin/Globulin Ratio (1-2) Urine Color (Yellow) Urine Appearance (Clear) Urine pH (5.0-8.0) Ur Specific [place] (1.005-1.030) Urine Protein (Negative) Urine Glucose (UA) (Negative) Urine Ketones (Negative) Urine Occult Blood (Negative) Urine Nitrite (Negative) Urine Bilirubin (Negative) Urine Urobilinogen (0.2-1.0) Ur Leukocyte Esterase (Negative) U Hyaline Cast (Auto) (0-5) /lpf Urine RBC (0-5) /hpf Urine WBC (0-5) /hpf Ur Squamous Epith Cells (0-5) /hpf Urine Bacteria (FEW) /hpf Urine Mucus (FEW) /hpf Ketones 0.28 (0.0-0.3) mM Meds: Medications Generic Name Dose Route Start Last Admin Trade Name Freq PRN Reason Stop Dose Admin Acetaminophen 650 mg 04/05/20 08:12 04/05/20 08:26 Tylenol PO 650 mg Q4H PRN Administration Pain Dextrose/Sodium Chloride 1,000 mls @ 999 mls/hr 04/05/20 08:15 04/05/20 08:25 Dextrose 5%-Normal Saline IV 999 mls/hr ASDIRECTED HUNTER Administration Discontinued Medications Generic Name Dose Route Start Last Admin Trade Name Freq PRN Reason Stop Dose Admin Ondansetron HCl 4 mg 04/05/20 08:13 04/05/20 08:25 Zofran IVPUSH 04/05/20 08:14 4 mg ONETIME ONE Administration - Radiology Interpretation Free Text/Narrative:: 35-year-old female presents to the ED for evaluation of intermittent fever chills and sweats for the last 5 or 6 days. Gradually getting worse in terms of decreased appetite anorexia diffuse increased lower abdominal pain and low back pain. A sense of urgency minimal dysuria urinary frequency. 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 She is breast- feeding. She states she does have some chronic problems with back pain but this is worse than usual. Vomited once last night and again this morning. Feels w eak and lightheaded. On exam she does feel warm to palpation. Benign abdominal examination lungs are clear. Suspect urinary tract infection with bilateral pyelonephritis. Routine labs to be collected including a lactic acid. Serum ketones as well. IV will be D5 normal saline at open. Given Zofran 4 mg IV for nausea relief. Tylenol 650 mg p.o. for fever relief. - Re-Assessments/Exams Free Text/Narrative Re-Assessment/Exam: 04/05/20 09:16 White count came back low at 2.20. Differential pending 6 with hematocrit of 43.4. MCV is 90.6. Platelet count 177,000. Sodium 137 with a potassium of 4.0. Chloride 100 with a bicarb of 27. Anion gap is 14.0. BUN is 12 with a creatinine of 1.1. GFR is 57. Glucose is 98. Lactic acid 0.5. Calcium 8.8 with a magnesium of 2.1. Total bilirubin 0.5 remainder of the liver function studies are normal C-reactive protein is 0.3. Total protein 7.6 albumin fraction 4.1. Urinalysis shows 1+ proteinuria 2+ occult blood negative leukocyte esterase ketones were 0.28 g%. 04/05/20 09:23 Patient reports she is never been told she had a low WBC in the past. Urinalysis shows no signs of infection. She has an IUD in place since December 26 and is has been having nothing but problems with it since. Cannot tolerate intercourse due to the pain. She likes to run and running makes the abdomen hurt as well. Questioning whether or not she has pelvic inflammatory disease. CRP is also normal however is. 04/05/20 10:38 CT of the abdomen done without contrast per renal protocol. She does have a stone in each kidney tissue. The right kidney shows a very prominent pelvis but I could not identify any obstruction of the ureter on his way to the bladder. There is increased stool throughout the colon. Liver appears normal small to moderate hiatal hernia. Lungs are clear. Gallbladder contains no calcified gallstones. Pancreas is not well-visualized. Spleen is normal. Adrenal glands are normal. Small bowel normal. 04/05/20 11:05: The patient seems to have a low-grade pelvic inflammatory disease possibly a low-grade endometritis since having the IUD placed in December. Does not want me to take the IUD out today and she will make an appointment to see Dr. Todd next week to have it removed. She needs a white count repeated at that time. In the meantime I will place her on Omnicef 3 mg twice daily for the next 10 days and Flagyl 500 mg 3 times daily for the next 7 days. She will use Motrin for pain and fever relief. 04/05/20 11:14 CT of the abdomen over read by radiologist reveals small nonobstructing calculus within the right mid kidney. No other abnormal calcification is seen within the right kidney small cortical calcification is seen inferiorly within the left kidney. No ureteral calculi are identified. IUD present in the uterus. Visualized lung bases show nothing acute. Noncontrast appearance of the liver and spleen shows no discrete abnormalities. Adrenal glands show no nodules. Pancreas shows no discrete abnormality. Aorta shows no aneurysm. No retroperitoneal adenopathy or mesenteric abnormalities are noted. No discrete pelvic mass or adenopathy appreciated. Increased stool throughout the colon is noted. Small amount of free fluid is noted within the cul-de-sac most likely physiologic. Departure - Departure Time of Disposition: 11:06 Disposition: Home, Self-Care 01 Condition: Fair Clinical Impression: Pelvic inflammatory disease (PID) - Discharge Information *PRESCRIPTION DRUG MONITORING PROGRAM REVIEWED*: Not Applicable *COPY OF PRESCRIPTION DRUG MONITORING REPORT IN PATIENT FABIAN: Not Applicable Prescriptions: metroNIDAZOLE [Flagyl] 500 mg PO Q8H #21 tab Cefdinir [Omnicef] 300 mg PO BID #20 cap Instructions: Pelvic Inflammatory Disease, [id number] Referrals: Julia Harrington NP [Primary Care Provider] - Forms: ED Department Discharge Additional Instructions: Evaluation in the emergency room today in regards to diffuse lower abdominal pain and low back pain associated with the development of a fever and chills. Chest x-ray was normal. CT of the abdomen also proved to be within normal limits other than mildly increased stool throughout the colon. D present in the uterus. No free fluid in the pelvis. There are 2 kidney stones 1 in each kidney. Within the kidney tissue at this time with no signs of a stone in the ureter causing pain. I believe current pain syndrome is due to low-grade pelvic inflammatory disease as the pain started after having IUD placed December 26. Suggest follow-up with Dr. Todd in the clinic next week to consider having the IUD removed. I am going to treat you for pelvic inflammatory disease with antibiotics Omnicef 300 mg twice daily for 10 days and Flagyl 500 mg 3 times daily for the next 7 days to clear up infection. Continue Motrin 600 mg every 6 hours for fever relief and pain relief. Sepsis Event Note (ED) - Evaluation Sepsis Screening Result: No Definite Risk - Focused Exam Vital Signs: Vital Signs Temp Pulse Resp BP Pulse Ox 04/05/20 08:03 36.6 C 74 16 98/64 97 - My Orders Last 24 Hours: My Active Orders 04/05/20 08:12 Acetaminophen [Tylenol] 650 mg PO Q4H PRN 04/05/20 08:13 Blood Culture x2 Reflex Set [OM.PC] Stat 04/05/20 08:15 Dextrose 5%-0.9% NaCl [Dextrose 5%-Normal Saline] 1,000 ml IV ASDIRECTED 04/05/20 08:25 CULTURE BLOOD [BC] Stat 04/05/20 08:30 CULTURE BLOOD [BC] Stat 04/05/20 09:20 Chest 1V Frontal [CR] Stat - Assessment/Plan Last 24 Hours: My Active Orders 04/05/20 08:12 Acetaminophen [Tylenol] 650 mg PO Q4H PRN 04/05/20 08:13 Blood Culture x2 Reflex Set [OM.PC] Stat 04/05/20 08:15 Dextrose 5%-0.9% NaCl [Dextrose 5%-Normal Saline] 1,000 ml IV ASDIRECTED 04/05/20 08:25 CULTURE BLOOD [BC] Stat 04/05/20 08:30 CULTURE BLOOD [BC] Stat 04/05/20 09:20 Chest 1V Frontal [CR] Stat
--- NOTE | 2020-04-05 11:01 | CT ---
CT abdomen and pelvis Technique: Multiple axial sections were obtained from above the dome of the diaphragm inferiorly through the pubic symphysis. Intravenous contrast and oral contrast not utilized. Study has been performed as a ureteral stone protocol. Comparison: Prior CT abdomen and pelvis exam of 12/22/10. Findings: Small nonobstructing calculus is noted within the mid right kidney. No other abnormal calcifications are seen within the right kidney. Small cortical calcification is seen inferiorly within the left kidney. No ureteral calculi are seen. IUD present within the uterus. Other findings: Visualized lung bases show nothing acute. Noncontrast appearance of the liver and spleen shows no discrete abnormality. Adrenal glands show no nodule. Pancreas shows no discrete abnormality. Aorta shows no aneurysm. No retroperitoneal adenopathy or mesenteric abnormalities are seen. No discrete pelvic mass or adenopathy is seen. Increased stool throughout the colon is noted. Small amount of free fluid is noted within the cul-de-sac most likely physiologic. Bone window settings were reviewed which show no acute osseous finding. Impression: 1. Small nonobstructing stone within the mid right kidney. Small cortical calcification within the inferior left kidney. No ureteral dilatation or ureteral stone is seen. 2. IUD present within the uterus. 3. Mild increased stool throughout the colon. 4. No other acute finding is appreciated. Diagnostic code #2 This report was dictated in MDT
--- NOTE | 2020-04-05 11:45 | CR ---
Chest: Frontal view of the chest was obtained. Comparison: No prior chest imaging is available. Heart size and mediastinum are normal. Lungs are clear. Bony structures are grossly intact. Impression: 1. Nothing acute is seen on frontal chest x-ray. Diagnostic code #1 This report was dictated in MDT
== END 2020-04-05 11:25 | disposition home or self-care (01) ==
LOC: JD.ED 07:50
DX: N73.9 Female pelvic inflammatory disease, unspecified (principal); R11.2 Nausea with vomiting, unspecified
CPT/HCPCS: 36415; 71045; 74176; 80053; 81001; 82009; 83605; 83735; 85007; 85027; 86140; 87040; 96361; 96374; 99284; A9270; J2405; J7042; 99283

== ENCOUNTER 2022-08-07 08:46 | Inpatient (IN) | payer BC ==
[2022-08-07] MEDS ORDERED: Nalbuphine HCl 10 MG/ 1ML Amp IVPUSH PRN (09:53)
[2022-08-07] MEDS ORDERED: Calcium Carbonate 500 MG Tab.Chew PO PRN (09:53)
[2022-08-07] MEDS ORDERED: Lactated Ringers 1,000 ML IV SCH (10:00)
[2022-08-07] MEDS ORDERED: Oxytocin/Lactated Ringers 10 UNIT/1,000 ML BAG IV SCH ×2 (10:00)
[2022-08-07] MEDS ORDERED: ePHEDrine 50 MG/ML SDV IVPUSH PRN (10:30)
[2022-08-07] MEDS ORDERED: diphenhydrAMINE 50 MG/ML SDV IVPUSH PRN (10:30)
[2022-08-07] MEDS ORDERED: fentaNYL 100 MCG/2 ML SDV EPIDUR PRN (10:30)
[2022-08-07] MEDS ORDERED: Bupivacaine/fentaNYL/NS 100 ML Bag EPIDUR PRN (10:30)
[2022-08-07] MEDS: Ondansetron 4 MG/2 ML SDV IVPUSH PRN ×2 (13:42→18:09)
[2022-08-07] MEDS ORDERED: Docusate Sodium 100 MG Cap PO PRN (19:22)
[2022-08-07] MEDS ORDERED: Acetaminophen 325 MG Tab PO PRN (19:22)
[2022-08-07] MEDS ORDERED: Witch Hazel Medicated Pads 40/Jar TOP PRN (19:22)
[2022-08-07] MEDS ORDERED: Benzocaine/Menthol 20%-0.5% Spray 78 GM Cannister TOP PRN (19:22)
[2022-08-07] MEDS: Ibuprofen 600 MG Tab PO PRN (19:33)
[2022-08-08] MEDS: Ibuprofen 600 MG Tab PO PRN ×3 (01:29→14:48)
[2022-08-08 22:47] VITALS: BP 91/50; PULSE 62
== END 2022-08-08 20:27 | disposition home or self-care (01) | DRG 560 ==
LOC: JD.OB 08:46 → JD.OBCHECK 08:46 → JD.OB 09:53 → JD.OBCHECK 09:53 → JD.OB 18:57
PROVIDERS: ADMIT Obstetrics & Gynecology; ATTEND Obstetrics & Gynecology
PROC: 10E0XZZ Delivery of Products of Conception, External Approach (ICD-10-PCS; principal; 2022-08-07)
DX: O99.62 Diseases of the digestive system complicating childbirth (principal); K21.9 Gastro-esophageal reflux disease without esophagitis; Z37.0 Single live birth; Z3A.39 39 weeks gestation of pregnancy
CPT/HCPCS: 36415; 59025; 59409; 85025; 86592; 86850; 86900; 86901; A9270-GY; J2405; J2590; J7120